=== PATIENT | male | born 1985 | race Caucasian/White ===

== ENCOUNTER 2018-12-14 10:48 | Inpatient (IN) | payer OTHER ==
[2018-12-14] MEDS ORDERED: Sodium Chloride 0.9% 1,000 ML IV SCH ×2 (11:45→15:00)
[2018-12-14] MEDS ORDERED: Ondansetron 4 MG/2 ML SDV IVPUSH ONE (11:51)
[2018-12-14] MEDS ORDERED: HYDROmorphone 0.5 MG/0.5 ML Syringe IVPUSH ONE ×2 (11:51→16:29)
--- NOTE | 2018-12-14 11:57 | EDM.PDOC ---
ED HPI GENERAL MEDICAL PROBLEM - General Chief Complaint: Abdominal Pain Stated Complaint: ABD PAIN Time Seen by Provider: 12/14/18 11:52 Source of Information: Reports: Patient History Limitations: Reports: No Limitations - History of Present Illness INITIAL COMMENTS - FREE TEXT/NARRATIVE: pt arrived having severe lower abdomanal pain. He did have 6 stools during the nite and early am. He has not vomited. He states his pain started up high and themoved to his lower abdoman. He has not voided. At the clinic he did have a bladder scan which showed a empty bladder. Onset: Gradual, Other (pt became ill tuesday. He had abdomanal cramps at that point. ) Duration: Hour(s): Location: Reports: Abdomen - Related Data Allergies Allergy/AdvReac Type Severity Reaction Status Date / Time No Known Allergies Allergy Verified 12/14/18 11:07 Home Meds: Home Meds Ibuprofen 800 mg PO Q5H PRN 12/14/18 [History] Past Medical History - Infectious Disease History Infectious Disease History: Reports: Chicken Pox Social & Family History - Tobacco Use Smoking Status *Q: Never Smoker - Caffeine Use Caffeine Use: Reports: Coffee, Energy Drinks - Recreational Drug Use Recreational Drug Use: No ED ROS GENERAL - Review of Systems Review Of Systems: See Below Constitutional: Reports: Fever, Chills HEENT: Reports: No Symptoms Respiratory: Reports: No Symptoms Cardiovascular: Reports: No Symptoms Endocrine: Reports: No Symptoms GI/Abdominal: Reports: Abdominal Pain, Other (hurts alot when he walks. ) : Reports: Other (pt is having difficulty voiding. ) Musculoskeletal: Reports: No Symptoms Skin: Reports: No Symptoms ED EXAM, RENAL/ - Physical Exam Exam: See Below Text/Narrative:: pt arrived with a low grade temp and severe lower abdomanal pain. He has not vomited but he has been having alot of loose stools. He has pain when he walks. Exam Limited By: No Limitations General Appearance: Alert, Anxious Ears: Normal TMs Nose: Normal Inspection Throat/Mouth: Normal Inspection Head: Atraumatic Neck: Normal Inspection Respiratory/Chest: No Respiratory Distress Cardiovascular: Regular Rate, Rhythm, Tachycardia GI/Abdominal: Guarding, Rigid, Rebound, Other (pt has marked tenderness in the lower abdoman, both sides. ) (Male) Exam: Deferred Rectal (Males) Exam: Deferred Back Exam: Normal Inspection Extremities: Normal Inspection Neurological: Alert, Oriented, Normal Cognition Psychiatric: Anxious Course - Vital Signs Last Recorded V/S: Last Vital Signs Temp 35.6 C 12/14/18 12:52 Pulse 98 12/14/18 12:52 Resp 16 12/14/18 12:52 BP 141/74 H 12/14/18 12:52 Pulse Ox 98 12/14/18 12:52 - Orders/Labs/Meds Orders: Active Orders 24 hr Category Date Time Status Sodium Chloride 0.9% [Normal Saline] 1,000 ml Med 12/14/18 11:45 Active IV ASDIRECTED cefOXitin [Mefoxin] 2 gm Med 12/14/18 13:13 Ordered Sodium Chloride 0.9% [Normal Saline] 50 ml IV ONETIME Medication Orders Sodium Chloride (Normal Saline) 1,000 mls @ 999 mls/hr IV ASDIRECTED FABIO Last Admin: 12/14/18 12:17 Dose: 999 mls/hr Labs: Laboratory Tests 12/14/18 12/14/18 12/14/18 Range/Units 09:42 11:50 11:50 WBC 28.9 H (4.5-11.0) K/uL RBC 4.90 (4.30-5.90) M/uL Hgb 14.9 (12.0-15.0) g/dL Hct 45.8 (40.0-54.0) % MCV 94 (80-98) fL MCH 30 (27-31) pg MCHC 33 (32-36) % Plt Count 224 (150-400) K/uL Neut % (Auto) 92 H (36-66) % Lymph % (Auto) 3 L (24-44) % Haakon % (Auto) 5 (2-6) % Eos % (Auto) 0 L (2-4) % Baso % (Auto) 0 (0-1) % Sodium 135 L (140-148) mmol/L Potassium 4.4 (3.6-5.2) mmol/L Chloride 97 L (100-108) mmol/L Carbon Dioxide 25 (21-32) mmol/L Anion Gap 17.4 H (5.0-14.0) mmol/L BUN 18 (7-18) mg/dL Creatinine 2.0 H (0.8-1.3) mg/dL Est Cr Clr Drug Dosing 64.97 mL/min Estimated GFR (MDRD) 38 L (>60) BUN/Creatinine Ratio Not Reportable Glucose 140 H (74-106) mg/dL Lactic Acid 3.1 H (0.4-2.0) mmol/L Calcium 9.5 (8.5-10.1) mg/dL Total Bilirubin 1.2 H (0.2-1.0) mg/dL AST 20 (15-37) U/L ALT 42 (12-78) U/L Alkaline Phosphatase 80 (46-116) U/L C-Reactive Protein 26.99 H (0.0-0.3) mg/dL Total Protein 8.4 H (6.4-8.2) g/dL Albumin 3.7 (3.4-5.0) g/dL Globulin 4.7 H (2.3-3.5) g/dL Albumin/Globulin Ratio 0.8 L (1.2-2.2) Lipase (73-393) U/L Urine Color Urine Appearance Urine pH (4.5-8.0) Ur Specific [place] (1.008-1.030) Urine Protein (NEGATIVE) mg/dL Urine Glucose (UA) (NEGATIVE) mg/dL Urine Ketones (NEGATIVE) mg/dL Urine Occult Blood (NEGATIVE) Urine Nitrite (NEGAITVE) Urine Bilirubin (NEGATIVE) Urine Urobilinogen (NORMAL) mg/dL Ur Leukocyte Esterase (NEGATIVE) Urine RBC (0-5) Urine WBC (0-5) Ur Epithelial Cells Amorphous Sediment Urine Bacteria Urine Mucus 12/14/18 12/14/18 Range/Units 12:00 12:11 WBC (4.5-11.0) K/uL RBC (4.30-5.90) M/uL Hgb (12.0-15.0) g/dL Hct (40.0-54.0) % MCV (80-98) fL MCH (27-31) pg MCHC (32-36) % Plt Count (150-400) K/uL Neut % (Auto) (36-66) % Lymph % (Auto) (24-44) % Haakon % (Auto) (2-6) % Eos % (Auto) (2-4) % Baso % (Auto) (0-1) % Sodium (140-148) mmol/L Potassium (3.6-5.2) mmol/L Chloride (100-108) mmol/L Carbon Dioxide (21-32) mmol/L Anion Gap (5.0-14.0) mmol/L BUN (7-18) mg/dL Creatinine (0.8-1.3) mg/dL Est Cr Clr Drug Dosing mL/min Estimated GFR (MDRD) (>60) BUN/Creatinine Ratio Glucose (74-106) mg/dL Lactic Acid (0.4-2.0) mmol/L Calcium (8.5-10.1) mg/dL Total Bilirubin (0.2-1.0) mg/dL AST (15-37) U/L ALT (12-78) U/L Alkaline Phosphatase (46-116) U/L C-Reactive Protein (0.0-0.3) mg/dL Total Protein (6.4-8.2) g/dL Albumin (3.4-5.0) g/dL Globulin (2.3-3.5) g/dL Albumin/Globulin Ratio (1.2-2.2) Lipase 58 L (73-393) U/L Urine Color Yellow Urine Appearance Clear Urine pH 5.0 (4.5-8.0) Ur Specific [place] 1.015 (1.008-1.030) Urine Protein Trace (NEGATIVE) mg/dL Urine Glucose (UA) Normal (NEGATIVE) mg/dL Urine Ketones Negative (NEGATIVE) mg/dL Urine Occult Blood Negative (NEGATIVE) Urine Nitrite Negative (NEGAITVE) Urine Bilirubin Negative (NEGATIVE) Urine Urobilinogen Normal (NORMAL) mg/dL Ur Leukocyte Esterase Negative (NEGATIVE) Urine RBC 0-5 (0-5) Urine WBC 0-5 (0-5) Ur Epithelial Cells Rare Amorphous Sediment Many Urine Bacteria Not seen Urine Mucus Not seen Meds: Medications Generic Name Dose Route Start Last Admin Trade Name Freq PRN Reason Stop Dose Admin Sodium Chloride 1,000 mls @ 999 mls/hr 12/14/18 11:45 12/14/18 12:17 Normal Saline IV 999 mls/hr ASDIRECTED FABIO Administration Discontinued Medications Generic Name Dose Route Start Last Admin Trade Name Freq PRN Reason Stop Dose Admin Hydromorphone HCl 0.5 mg 12/14/18 11:51 12/14/18 12:21 Dilaudid IVPUSH 12/14/18 11:52 0.5 mg ONETIME ONE Administration Ondansetron HCl 4 mg 12/14/18 11:51 12/14/18 12:21 Zofran IVPUSH 12/14/18 11:52 4 mg ONETIME ONE Administration - Re-Assessments/Exams Free Text/Narrative Re-Assessment/Exam: 12/14/18 13:18 pt has a 28,000 wbc and a markedly elevated crp. He has been given 2 liters of fluid and cefoxitin 2 gm. Departure - Departure Time of Disposition: 13:18 Disposition: Admitted As Inpatient 64 Condition: Fair Clinical Impression: Acute appendicitis - Discharge Information Referrals: PCP,None [Primary Care Provider] - Forms: ED Department Discharge Care Plan Goals: admit to Dr Coker - My Orders Last 24 Hours: My Active Orders 12/14/18 11:45 Sodium Chloride 0.9% [Normal Saline] 1,000 ml IV ASDIRECTED 12/14/18 13:13 cefOXitin [Mefoxin] 2 gm Sodium Chloride 0.9% [Normal Saline] 50 ml IV ONETIME - Assessment/Plan Last 24 Hours: My Active Orders 12/14/18 11:45 Sodium Chloride 0.9% [Normal Saline] 1,000 ml IV ASDIRECTED 12/14/18 13:13 cefOXitin [Mefoxin] 2 gm Sodium Chloride 0.9% [Normal Saline] 50 ml IV ONETIME
--- NOTE | 2018-12-14 13:01 | CRLCT ---
INDICATION: Abdominal pain TECHNIQUE: CT abdomen and pelvis without contrast. COMPARISON: None. FINDINGS: Lower chest: Unremarkable. Liver: Normal in size and attenuation. No masses. Gallbladder and bile ducts: No stones or inflammation. No biliary dilatation. Pancreas: Unremarkable. No mass or inflammation. Spleen: Normal in size. No masses. Adrenal glands: Normal in size. No nodules. Kidneys: Normal in size. No masses, stones, or hydronephrosis. GI tract: Unremarkable. Normal in caliber. No sign of mass or inflammation. Appendix is markedly inflamed and dilated measuring up to 14 mm. There are multiple fecaliths within the appendix. No sign of cameron perforation or abscess. Vasculature: Unremarkable. Lymph nodes: No lymphadenopathy. Abdominal wall/Omentum/Peritoneum: Unremarkable. No sign of mass or infiltration. No free air or significant free fluid. Pelvis: Unremarkable. No pelvic masses. Bones: Unremarkable for age. IMPRESSION: Acute appendicitis without convincing evidence of rupture. The remainder of the exam is unremarkable. Dictated by Mihai Blunt MD @ 12/14/2018 12:59:22 PM Please note that all CT scans at this facility use dose modulation, iterative reconstruction, and/or weight-based dosing when appropriate to reduce radiation dose to as low as reasonably achievable. Dictated by: Mihai Blunt MD @ 12/14/2018 12:59:31 (Electronically Signed)
[2018-12-14] MEDS ORDERED: cefOXitin 2 GM in Sodium Chloride 0.9% 50 ML IV ONE ×2 (13:13→13:45)
[2018-12-14] MEDS ORDERED: Sodium Chloride 0.9% 1,000 ML IV ONE (13:48)
[2018-12-14] MEDS ORDERED: Neostigmine Methylsulfate 1 MG/ML 5 ML Syringe ONE (16:14)
[2018-12-14] MEDS ORDERED: Midazolam 1 MG/ML 2 ML SDV ONE (16:14)
[2018-12-14] MEDS ORDERED: fentaNYL 250 MCG/5 ML SDV ONE ×2 (16:14→20:11)
[2018-12-14] MEDS ORDERED: Dexamethasone 4 MG/ML SDV ONE (16:14)
[2018-12-14] MEDS ORDERED: Glycopyrrolate 0.2 MG/ML 5 ML MDV ONE (16:14)
[2018-12-14] MEDS ORDERED: Ondansetron 4 MG/2 ML SDV ONE (16:14)
[2018-12-14] MEDS ORDERED: Succinylcholine 200 MG/10 ML MDV ONE (16:14)
[2018-12-14] MEDS ORDERED: Propofol 200 MG/20 ML SDV ONE (16:14)
[2018-12-14] MEDS ORDERED: Rocuronium 50 MG/5 ML Vial ONE ×2 (16:14→20:11)
[2018-12-14] MEDS ORDERED: HYDROmorphone 0.5 MG/0.5 ML Syringe ONE (16:32)
[2018-12-14] MEDS ORDERED: Ondansetron 4 MG/2 ML SDV IVPUSH PRN (21:08)
[2018-12-14] MEDS ORDERED: HYDROmorphone/Normal Saline 15 MG/30 ML PCA IV SCH (21:15)
[2018-12-14] MEDS ORDERED: Lidocaine 1% with EPINEPHrine 1:100,000 50 ML MDV ONE (21:51)
[2018-12-14] MEDS ORDERED: Bupivacaine 0.5% 50 ML MDV ONE (21:51)
[2018-12-14] MEDS: D5 1/2 NS w/ 20 mEq/L KCl 1,000 ML IV SCH (21:55)
[2018-12-14] MEDS: Piperacillin/Tazobactam 3.375 GM in Sodium Chloride 0.9% 50 ML IV SCH (22:11)
[2018-12-15] MEDS: Piperacillin/Tazobactam 3.375 GM in Sodium Chloride 0.9% 50 ML IV SCH (03:46)
[2018-12-15] MEDS: D5 1/2 NS w/ 20 mEq/L KCl 1,000 ML IV SCH ×3 (05:23→19:52)
[2018-12-15] MEDS ORDERED: Naloxone 0.4 MG/ML SDV IV PRN (07:15)
--- NOTE | 2018-12-15 08:09 | OR ---
DATE OF PROCEDURE: 12/14/2018 PREOPERATIVE DIAGNOSIS: Acute appendicitis. POSTOPERATIVE DIAGNOSIS: Acute retrocecal perforated appendicitis. PROCEDURE PERFORMED: Laparoscopic converted to open appendectomy. SURGEON: Atul Bardales MD ANESTHESIA: General endotracheal. INDICATION: This 33-year-old white male noted onset of diffuse abdominal pain 2 -1/2 days ago. The pain subsequently moved to his right lower quadrant. Pain was followed by nausea, but no vomiting. He has had 2 days of chills and fever. He thought it was all just the flu. It got worse today, causing him to seek medical care. He was seen in the clinic and referred to the emergency room. He was found to be quite tender in the lower abdomen with peritoneal signs. He was afebrile. He had a CT scan, which showed a dilated distended appendix at 14 mm with fecaliths in it. It did not appear to be perforated. He had a 28,900 white count. I counseled him for a laparoscopic with possible open appendectomy , including risks and alternatives, and he gave his informed consent to proceed. DESCRIPTION OF PROCEDURE: After adequate general endotracheal anesthesia was obtained, the patient had a Brennan catheter placed. The leg compression stockings were in place and used during the entire procedure. His abdomen was prepped and draped in the usual sterile fashion. Time-out was held. An infraumbilical semicircular incision was made. Under direct vision, a 12-mm port was introduced in the abdomen through this incision. The camera was introduced into the abdomen, and the abdomen was insufflated to a pressure of 15 mmHg with carbon dioxide. We encountered purulent material. A lot of erythema and inflammation consistent with peritonitis was seen. We placed 12 mm ports in the right upper and left lower quadrants. We aspirated the fluid free. It was sent for Gram-stain and culture, Gram stain returned gram- negative rods and wbc's. We attempted to find and mobilize up the appendix. We mobilized the cecum by taking down the peritoneal reflection. We could see the tip of the appendix. This was obviously a retrocecal appendix. It was clear after a protracted attempt at mobilizing the appendix that we were not going to be able to safely do this, so it was converted to open. A Casa-Carlos Eduardo incision was made. This was carried deep using Bovie cautery to the external oblique. This was opened parallel to course of its fibers. A muscle-splitting maneuver was used to reach the peritoneum, which was elevated and incised. The peritoneal incision was extended transversely the length of the skin incision using Bovie cautery while protecting underlying structures. This was not a large enough incision, so we extended it with a Bath extension using Bovie cautery. We were then able manually to mobilize up the cecum and then the appendix. The mesoappendix was taken down with a cruz load using the endoscopic KAROLINA. The base of the appendix appeared to be necrotic, consistent with perforation, obviously suspected because of the purulent appearing material present. The base of appendix was divided with the endoscopic KAROLINA. This appeared to be a good viable closure. We did oversew this with Lembert stitches of 3-0 Vicryl in a running fashion. The abdomen had previously been irrigated and suctioned dry. Also, the right upper and left lower quadrant fascial defects had previously been closed with 0 Vicryl suture using the fascial closure device. At this point, we irrigated the cecum outside the abdomen and returned the cecum to the abdomen. We aspirated the fluid that was left in the abdomen, and then we closed the abdomen. The peritoneum was closed with a running stitch of 3-0 Vicryl. The fascia was closed with a running 0 Vicryl suture. This was done in layers. We irrigated the incision between layers. The incision was then packed open with 1 inch iodoform gauze. The infraumbilical incision was closed with an interrupted stitch of 0 Vicryl. The laparoscopic incisions had a 1 inch iodoform gauze placed in them. A sterile dressing was applied. The anesthesia was reversed. He was extubated and brought to recovery room in fair condition. He did tolerate the procedure well. Atul Bardales MD /[id number] MELLY
[2018-12-15] MEDS: HYDROmorphone/Normal Saline 15 MG/30 ML PCA IV PRN ×2 (09:04→20:58)
[2018-12-15] MEDS: Piperacillin/Tazobactam/Dext 3.375 GM in Premix Bag 1 BAG IV SCH ×3 (10:23→21:00)
--- NOTE | 2018-12-15 14:39 | PCM.SURGPN ---
- General Info Date of Service: 12/15/18 Date of Surgery/Procedure: 12/14/18 POD#: 1 Post-Op Diagnosis: Perforated acute retrocecal appendicitis Functional Status: Reports: Pain Controlled, Tolerating Diet (Clear liquids), Ambulating, Urinating (Brennan), Incentive Spirometry - Review of Systems General: Reports: No Symptoms, Other (He feels better than he did preoperatively. ) HEENT: Reports: No Symptoms Pulmonary: Reports: No Symptoms Cardiovascular: Reports: No Symptoms Gastrointestinal: Reports: Abdominal Pain (Improved compared to preoperatively. ). Denies: Flatus, Nausea, Vomiting Genitourinary: Reports: No Symptoms Musculoskeletal: Reports: No Symptoms Skin: Reports: No Symptoms Neurological: Reports: No Symptoms Psychiatric: Reports: No Symptoms - Patient Data Vitals - Most Recent: Last Vital Signs Temp 99.4 F 12/15/18 12:47 Pulse 92 12/15/18 12:47 Resp 16 12/15/18 12:47 BP 128/63 12/15/18 12:47 Pulse Ox 89 L 12/15/18 14:04 Weight - Most Recent: 249 lb 15.997 oz I&O - Last 24 Hours: Intake & Output 12/14/18 12/15/18 12/15/18 22:59 06:59 14:59 Intake Total 50 1258 650 Output Total 625 775 425 Balance -575 483 225 Lab Results Last 24 Hrs: Laboratory Results - last 24 hr 12/15/18 12/15/18 Range/Units 04:36 04:36 WBC 19.8 H (4.5-11.0) K/uL RBC 4.11 L (4.30-5.90) M/uL Hgb 12.4 D (12.0-15.0) g/dL Hct 39.2 L (40.0-54.0) % MCV 95 (80-98) fL MCH 30 (27-31) pg MCHC 32 (32-36) % Plt Count 235 (150-400) K/uL Sodium 136 L (140-148) mmol/L Potassium 4.7 (3.6-5.2) mmol/L Chloride 103 (100-108) mmol/L Carbon Dioxide 24 (21-32) mmol/L Anion Gap 13.7 (5.0-14.0) mmol/L BUN 11 (7-18) mg/dL Creatinine 1.1 (0.8-1.3) mg/dL Est Cr Clr Drug Dosing 118.13 mL/min Estimated GFR (MDRD) > 60 (>60) Glucose 149 H (74-106) mg/dL Calcium 8.6 (8.5-10.1) mg/dL Boubacar Results Last 24 Hrs: Microbiology 12/14/18 20:01 Gram Stain - Final Abdominal Fluid - Aspirate Med Orders - Current: Current Medications Enoxaparin Sodium (Lovenox) 40 mg SUBCUT Q24H [facility] Hydromorphone HCl (Dilaudid It Risk And Assurance Manager 15 Mg In Ns 30 Ml) 0 mg IV ASDIRECTED PRN; Protocol PRN Reason: Pain Last Admin: 12/15/18 09:04 Dose: 15 mg Potassium Chloride/Dextrose/Sod Cl (D5 1/2 Ns W/ 20 Meq/L Kcl) 1,000 mls @ 150 mls/hr IV ASDIRECTED FABIO Last Admin: 12/15/18 12:44 Dose: 150 mls/hr Piperacillin/Tazobactam/ (Dextrose 3.375 gm/ Premix) 50 mls @ 100 mls/hr IV Q6H [facility] Last Admin: 12/15/18 10:23 Dose: 100 mls/hr Naloxone HCl (Narcan) 0.1 mg IV ASDIRECTED PRN PRN Reason: decreased respiratory rate Ondansetron HCl (Zofran) 4 mg IVPUSH Q6H PRN PRN Reason: Nausea/Vomiting Discontinued Medications Bupivacaine HCl (Marcaine 0.5%) Confirm Administered Dose 50 ml .ROUTE .STK-MED ONE Stop: 12/14/18 21:52 Last Admin: 12/14/18 20:55 Dose: 10 ml Dexamethasone (Dexamethasone) Confirm Administered Dose 4 mg .ROUTE .STK-MED ONE Stop: 12/14/18 16:15 Fentanyl (Sublimaze) Confirm Administered Dose 250 mcg .ROUTE .STK-MED ONE Stop: 12/14/18 16:15 Fentanyl (Sublimaze) Confirm Administered Dose 250 mcg .ROUTE .STK-MED ONE Stop: 12/14/18 20:12 Glycopyrrolate (Robinul) Confirm Administered Dose 1 mg .ROUTE .STK-MED ONE Stop: 12/14/18 16:15 Hydromorphone HCl (Dilaudid) 0.5 mg IVPUSH ONETIME ONE Stop: 12/14/18 11:52 Last Admin: 12/14/18 12:21 Dose: 0.5 mg Hydromorphone HCl (Dilaudid) 0.5 mg IVPUSH ONETIME ONE Stop: 12/14/18 16:30 Last Admin: 12/14/18 16:33 Dose: 0.5 mg Hydromorphone HCl (Dilaudid) Confirm Administered Dose 0.5 mg .ROUTE .STK-MED ONE Stop: 12/14/18 16:33 Last Admin: 12/14/18 18:53 Dose: Not Given Hydromorphone HCl (Dilaudid It Risk And Assurance Manager 15 Mg In Ns 30 Ml) 15 mg IV ASDIRECTED [facility]; Protocol Last Admin: 12/15/18 01:08 Dose: 15 mg Sodium Chloride (Normal Saline) 1,000 mls @ 999 mls/hr IV ASDIRECTED [facility] Last Admin: 12/14/18 12:17 Dose: 999 mls/hr Cefoxitin Sodium 2 gm/ Sodium (Chloride) 50 mls @ 100 mls/hr IV ONETIME ONE Stop: 12/14/18 13:42 Cefoxitin Sodium 2 gm/ Sodium (Chloride) 50 mls @ 100 mls/hr IV ONETIME ONE Stop: 12/14/18 14:14 Last Admin: 12/14/18 21:56 Dose: Not Given Sodium Chloride (Normal Saline) 1,000 mls @ 999 mls/hr IV .BOLUS ONE Stop: 12/14/18 14:48 Last Admin: 12/14/18 13:49 Dose: 999 mls/hr Sodium Chloride (Normal Saline) 1,000 mls @ 250 mls/hr IV ASDIRECTED [facility] Last Admin: 12/14/18 14:53 Dose: 250 mls/hr Piperacillin Sod/Tazobactam (Sod 3.375 gm/ Sodium Chloride) 50 mls @ 100 mls/ hr IV Q6H [facility] Last Admin: 12/15/18 03:46 Dose: 100 mls/hr Lidocaine/Epinephrine (Xylocaine 1% With Epinephrine 1:100,000) Confirm Administered Dose 50 ml .ROUTE .STK-MED ONE Stop: 12/14/18 21:52 Last Admin: 12/14/18 20:55 Dose: 10 ml Midazolam HCl (Versed 1 Mg/Ml) Confirm Administered Dose 2 mg .ROUTE .STK-MED ONE Stop: 12/14/18 16:15 Neostigmine Methylsulfate (Neostigmine) Confirm Administered Dose 5 mg .ROUTE .STK-MED ONE Stop: 12/14/18 16:15 Ondansetron HCl (Zofran) 4 mg IVPUSH ONETIME ONE Stop: 12/14/18 11:52 Last Admin: 12/14/18 12:21 Dose: 4 mg Ondansetron HCl (Zofran) Confirm Administered Dose 4 mg .ROUTE .STK-MED ONE Stop: 12/14/18 16:15 Propofol (Diprivan 20 Ml) Confirm Administered Dose 200 mg .ROUTE .STK-MED ONE Stop: 12/14/18 16:15 Rocuronium [place] (Zemuron) Confirm Administered Dose 50 mg .ROUTE .STK-MED ONE Stop: 12/14/18 16:15 Rocuronium [place] (Zemuron) Confirm Administered Dose 50 mg .ROUTE .STK-MED ONE Stop: 12/14/18 20:12 Succinylcholine Chloride (Quelicin) Confirm Administered Dose 200 mg .ROUTE .STK -MED ONE Stop: 12/14/18 16:15 - Exam Wound/Incisions: Dressing Dry and Intact, No Drainage Quality Assessment: Urine Catheter, DVT Prophylaxis General: Alert, Oriented, Cooperative, No Acute Distress Lungs: Clear to Auscultation, Normal Respiratory Effort Cardiovascular: Regular Rate, Regular Rhythm GI/Abdominal Exam: No Distention, Abnormal Bowel Sounds (Hypoactive), Other ( Dressing intact for planned DPC in the morning. ). No: Normal Bowel Sounds Extremities: Normal Inspection Skin: Warm, Dry Psy/Mental Status: Alert, Normal Affect, Normal Mood - Problem List Review Problem List Initiated/Reviewed/Updated: Yes - My Orders Last 24 Hours: Active Orders 24 hr Category Date Time Status Patient Status [ADT] Routine ADT 12/14/18 21:08 Active Ambulate [RC] ASDIRECTED Care 12/14/18 21:08 Active Antiembolic Devices [RC] .Routine Care 12/14/18 21:11 Active Communication Order [RC] ASDIRECTED Care 12/14/18 21:23 Active DC Brennan Catheter [Urinary Catheter Removal] [RC] Per Care 12/15/18 14:20 Ordered Unit Routine Dorsiflex/Plantar flex x 10 [RC] QSHIFT Care 12/14/18 21:08 Active Head of Bed Elevation [RC] CONTINUOUS Care 12/14/18 21:08 Active Intake and Output [RC] Q4HR Care 12/14/18 21:09 Active Notify Provider Intake and Out [RC] PRN Care 12/14/18 21:09 Active Notify Provider Vital Signs [RC] PRN Care 12/14/18 21:09 Active Oxygen Therapy [RC] PRN Care 12/14/18 21:08 Active Pneumonia Education [RC] UPON Care 12/14/18 21:08 Active Pulse Oximetry [RC] CONTINUOUS Care 12/14/18 21:10 Active RT Incentive Spirometry [RC] Q1HWA Care 12/14/18 21:08 Active Turn, Cough, Deep Breathe [RC] Q1HWA Care 12/14/18 21:08 Active Up With Assistance [RC] ASDIRECTED Care 12/14/18 21:08 Active Up ad Radha [RC] ASDIRECTED Care 12/14/18 21:08 Active Up to Chair [RC] TIDMEALS Care 12/14/18 21:08 Active VTE/DVT Education [RC] Click to Edit Care 12/14/18 21:11 Active Vital Signs [RC] Q4H Care 12/14/18 21:08 Active Respiratory Care Assess and Treatment [CONS] Routine Cons 12/14/18 21:08 Active Clear Liquid Diet [DIET] Diet 12/15/18 Lunch Active BASIC METABOLIC PANEL,BMP [CHEM] DAILY Lab 12/16/18 05:11 Ordered BASIC METABOLIC PANEL,BMP [CHEM] DAILY Lab 12/17/18 05:11 Ordered BASIC METABOLIC PANEL,BMP [CHEM] DAILY Lab 12/18/18 05:11 Ordered BASIC METABOLIC PANEL,BMP [CHEM] DAILY Lab 12/19/18 05:11 Ordered BASIC METABOLIC PANEL,BMP [CHEM] DAILY Lab 12/20/18 05:11 Ordered CBC W/O DIFF,HEMOGRAM [HEME] DAILY Lab 12/16/18 05:11 Ordered CBC W/O DIFF,HEMOGRAM [HEME] DAILY Lab 12/17/18 05:11 Ordered CBC W/O DIFF,HEMOGRAM [HEME] DAILY Lab 12/18/18 05:11 Ordered CBC W/O DIFF,HEMOGRAM [HEME] DAILY Lab 12/19/18 05:11 Ordered CBC W/O DIFF,HEMOGRAM [HEME] DAILY Lab 12/20/18 05:11 Ordered CULTURE ANAEROBIC [RM] Stat Lab 12/14/18 20:01 Results CULTURE WOUND + SMEAR [RM] Stat Lab 12/14/18 20:01 Results D5 1/2 NS w/ 20 mEq/L KCl 1,000 ml Med 12/14/18 21:30 Active IV ASDIRECTED Enoxaparin [Lovenox] Med 12/15/18 14:30 Ordered 40 mg SUBCUT DAILY HYDROmorphone/Normal Saline [Dilaudid SCHOOL ADMINISTRATOR 15 MG in NS Med 12/15/18 07:14 Active 30 ML] 0 mg IV ASDIRECTED PRN Naloxone [Narcan] Med 12/15/18 07:15 Active 0.1 mg IV ASDIRECTED PRN Ondansetron [Zofran] Med 12/14/18 21:08 Active 4 mg IVPUSH Q6H PRN Piperacillin/Tazobactam/Dext [Zosyn in Dextrose Iso- Med 12/15/18 10:00 Active Osmotic 3.375 GM] 3.375 gm Premix Bag 1 bag IV Q6H Abdominal Binder [OM.PC] Per Unit Routine Oth 12/14/18 21:09 Ordered DVT/VTE Prophylaxis Reflex [OM.PC] Per Unit Routine Oth 12/14/18 21:11 Ordered Resuscitation Status Routine Resus Stat 12/14/18 21:08 Ordered Medication Orders Enoxaparin Sodium (Lovenox) 40 mg SUBCUT Q24H [facility] Hydromorphone HCl (Dilaudid It Risk And Assurance Manager 15 Mg In Ns 30 Ml) 0 mg IV ASDIRECTED PRN; Protocol PRN Reason: Pain Last Admin: 12/15/18 09:04 Dose: 15 mg Potassium Chloride/Dextrose/Sod Cl (D5 1/2 Ns W/ 20 Meq/L Kcl) 1,000 mls @ 150 mls/hr IV ASDIRECTED FABIO Last Admin: 12/15/18 12:44 Dose: 150 mls/hr Infusion: 12/15/18 12:04 Dose: 150 mls/hr Admin: 12/15/18 05:23 Dose: 150 mls/hr Infusion: 12/15/18 04:36 Dose: 150 mls/hr Admin: 12/14/18 21:55 Dose: 150 mls/hr Piperacillin/Tazobactam/ (Dextrose 3.375 gm/ Premix) 50 mls @ 100 mls/hr IV Q6H [facility] Last Admin: 12/15/18 10:23 Dose: 100 mls/hr Naloxone HCl (Narcan) 0.1 mg IV ASDIRECTED PRN PRN Reason: decreased respiratory rate Ondansetron HCl (Zofran) 4 mg IVPUSH Q6H PRN PRN Reason: Nausea/Vomiting - Assessment Assessment (Free Text/Narrative):: Peritoneal fluid gram stain with Gm - rods and WBC's. WBC down to about 19K. Afebrile now, temp. max last night 100.8. He is improving. - Plan Plan (Free Text/Narrative):: Clear liquid diet has been started. Start Lovenox. D/C Mika. DPC in AM.
[2018-12-15] MEDS: Enoxaparin 40 MG/0.4 ML Syringe SUBCUT SCH (15:21)
[2018-12-16] MEDS: Piperacillin/Tazobactam/Dext 3.375 GM in Premix Bag 1 BAG IV SCH ×4 (03:44→21:28)
[2018-12-16] MEDS ORDERED: Bupivacaine 0.5% 50 ML MDV ONE (06:42)
[2018-12-16] MEDS ORDERED: Lidocaine 1% with EPINEPHrine 1:100,000 50 ML MDV ONE (06:42)
[2018-12-16] MEDS ORDERED: Propofol 200 MG/20 ML SDV ONE ×2 (07:00→07:30)
[2018-12-16] MEDS ORDERED: fentaNYL 100 MCG/2 ML SDV ONE (07:01)
[2018-12-16] MEDS ORDERED: Sodium Chloride 0.9% 500 ML ONE (07:16)
[2018-12-16] MEDS: HYDROmorphone/Normal Saline 15 MG/30 ML PCA IV PRN (08:47)
[2018-12-16] MEDS: D5 1/2 NS w/ 20 mEq/L KCl 1,000 ML IV SCH (09:55)
[2018-12-16] MEDS ORDERED: D5 1/2 NS w/ 20 mEq/L KCl 1,000 ML IV SCH (14:00)
[2018-12-16] MEDS ORDERED: Acetaminophen/HYDROcodone 325-5 MG Tab PO PRN (16:29)
[2018-12-16] MEDS: Enoxaparin 40 MG/0.4 ML Syringe SUBCUT SCH (17:10)
[2018-12-16] MEDS: Acetaminophen/HYDROcodone 325-5 MG Tab PO PRN (21:27)
[2018-12-17] MEDS: Acetaminophen/HYDROcodone 325-5 MG Tab PO PRN ×6 (03:01→23:18)
[2018-12-17] MEDS: Piperacillin/Tazobactam/Dext 3.375 GM in Premix Bag 1 BAG IV SCH ×4 (03:02→22:07)
[2018-12-17] MEDS ORDERED: Magnesium Hydroxide 400 MG/5 ML Susp 30 ML Cup PO ONE (06:00)
--- NOTE | 2018-12-17 09:01 | PCM.SURGPN ---
- General Info Date of Service: 12/17/18 Date of Surgery/Procedure: 12/14/18 POD#: 3 Post-Op Diagnosis: Acute perforated appendicitis. Admission Diagnosis/Problem: Appendicitis Functional Status: Reports: Pain Controlled, Tolerating Diet, Ambulating, Urinating, Incentive Spirometry, Other (Had BM. ) - Review of Systems General: Reports: No Symptoms. Denies: Fever HEENT: Reports: No Symptoms Pulmonary: Reports: No Symptoms Cardiovascular: Reports: No Symptoms Gastrointestinal: Reports: No Symptoms, Other (Had large BM. ). Denies: Nausea , Vomiting Genitourinary: Reports: No Symptoms Musculoskeletal: Reports: No Symptoms Skin: Reports: No Symptoms Neurological: Reports: No Symptoms Psychiatric: Reports: No Symptoms - Patient Data Vitals - Most Recent: Last Vital Signs Temp 97.3 F 12/17/18 07:13 Pulse 84 12/17/18 07:13 Resp 18 12/17/18 07:13 BP 140/70 12/17/18 07:13 Pulse Ox 96 12/17/18 07:17 Weight - Most Recent: 249 lb 15.997 oz I&O - Last 24 Hours: Intake & Output 12/16/18 12/17/18 12/17/18 22:59 06:59 14:59 Intake Total 50 Output Total 2950 300 300 Balance -2900 -300 -300 Lab Results Last 24 Hrs: Laboratory Results - last 24 hr 12/17/18 12/17/18 Range/Units 05:11 05:11 WBC 12.3 H (4.5-11.0) K/uL RBC 3.75 L (4.30-5.90) M/uL Hgb 11.3 L (12.0-15.0) g/dL Hct 33.8 L (40.0-54.0) % MCV 90 (80-98) fL MCH 30 (27-31) pg MCHC 33 (32-36) % Plt Count 277 (150-400) K/uL Sodium 136 L (140-148) mmol/L Potassium 3.4 L (3.6-5.2) mmol/L Chloride 100 (100-108) mmol/L Carbon Dioxide 27 (21-32) mmol/L Anion Gap 12.4 (5.0-14.0) mmol/L BUN 7 (7-18) mg/dL Creatinine 1.1 (0.8-1.3) mg/dL Est Cr Clr Drug Dosing 118.63 mL/min Estimated GFR (MDRD) > 60 (>60) Glucose 107 H (74-106) mg/dL Calcium 9.1 (8.5-10.1) mg/dL [facility] Results Last 24 Hrs: Microbiology 12/14/18 20:01 Gram Stain - Final Abdominal Fluid - Aspirate Wound Culture - Final Escherichia Coli Anaerobic Culture - Preliminary NO GROWTH AFTER 2 DAYS Med Orders - Current: Current Medications Hydrocodone Bitart/Acetaminophen ([place] 325-5 Mg) 1 - 2 tab PO Q4H PRN PRN Reason: Pain Last Admin: 12/17/18 07:20 Dose: 2 tab Enoxaparin Sodium (Lovenox) 40 mg SUBCUT Q24H [facility] Last Admin: 12/16/18 17:10 Dose: 40 mg Piperacillin/Tazobactam/ (Dextrose 3.375 gm/ Premix) 50 mls @ 100 mls/hr IV Q6H [facility] Last Admin: 12/17/18 03:02 Dose: 100 mls/hr Potassium Chloride/Dextrose/Sod Cl (D5 1/2 Ns W/ 20 Meq/L Kcl) 1,000 mls @ 0 mls/hr IV ASDIRECTED [facility] Lactobacillus Rhamnosus (Culturelle) 1 cap PO DAILY [facility] Naloxone HCl (Narcan) 0.1 mg IV ASDIRECTED PRN PRN Reason: decreased respiratory rate Ondansetron HCl (Zofran) 4 mg IVPUSH Q6H PRN PRN Reason: Nausea/Vomiting Last Admin: 12/16/18 17:20 Dose: 4 mg Potassium Chloride (Klor-Con M20) 20 meq PO BID [facility] Stop: 12/17/18 21:01 Discontinued Medications Hydrocodone Bitart/Acetaminophen ([place] 325-5 Mg) 1 tab PO Q4H PRN PRN Reason: Pain Last Admin: 12/16/18 17:09 Dose: 1 tab Bupivacaine HCl (Marcaine 0.5%) Confirm Administered Dose 50 ml .ROUTE .STK-MED ONE Stop: 12/14/18 21:52 Last Admin: 12/14/18 20:55 Dose: 10 ml Bupivacaine HCl (Marcaine 0.5%) Confirm Administered Dose 50 ml .ROUTE .STK-MED ONE Stop: 12/16/18 06:43 Dexamethasone (Dexamethasone) Confirm Administered Dose 4 mg .ROUTE .STK-MED ONE Stop: 12/14/18 16:15 Fentanyl (Sublimaze) Confirm Administered Dose 250 mcg .ROUTE .STK-MED ONE Stop: 12/14/18 16:15 Fentanyl (Sublimaze) Confirm Administered Dose 250 mcg .ROUTE .STK-MED ONE Stop: 12/14/18 20:12 Fentanyl (Sublimaze) Confirm Administered Dose 100 mcg .ROUTE .STK-MED ONE Stop: 12/16/18 07:02 Glycopyrrolate (Robinul) Confirm Administered Dose 1 mg .ROUTE .STK-MED ONE Stop: 12/14/18 16:15 Hydromorphone HCl (Dilaudid) 0.5 mg IVPUSH ONETIME ONE Stop: 12/14/18 11:52 Last Admin: 12/14/18 12:21 Dose: 0.5 mg Hydromorphone HCl (Dilaudid) 0.5 mg IVPUSH ONETIME ONE Stop: 12/14/18 16:30 Last Admin: 12/14/18 16:33 Dose: 0.5 mg Hydromorphone HCl (Dilaudid) Confirm Administered Dose 0.5 mg .ROUTE .STK-MED ONE Stop: 12/14/18 16:33 Last Admin: 12/14/18 18:53 Dose: Not Given Hydromorphone HCl (Dilaudid [employer] 15 Mg In Ns 30 Ml) 15 mg IV ASDIRECTED [facility]; Protocol Last Admin: 12/15/18 01:08 Dose: 15 mg Hydromorphone HCl (Dilaudid [employer] 15 Mg In Ns 30 Ml) 0 mg IV ASDIRECTED PRN; Protocol PRN Reason: Pain Last Admin: 12/16/18 08:47 Dose: 15 mg Sodium Chloride (Normal Saline) 1,000 mls @ 999 mls/hr IV ASDIRECTED [facility] Last Admin: 12/14/18 12:17 Dose: 999 mls/hr Cefoxitin Sodium 2 gm/ Sodium (Chloride) 50 mls @ 100 mls/hr IV ONETIME ONE Stop: 12/14/18 13:42 Cefoxitin Sodium 2 gm/ Sodium (Chloride) 50 mls @ 100 mls/hr IV ONETIME ONE Stop: 12/14/18 14:14 Last Admin: 12/14/18 21:56 Dose: Not Given Sodium Chloride (Normal Saline) 1,000 mls @ 999 mls/hr IV .BOLUS ONE Stop: 12/14/18 14:48 Last Admin: 12/14/18 13:49 Dose: 999 mls/hr Sodium Chloride (Normal Saline) 1,000 mls @ 250 mls/hr IV ASDIRECTED [facility] Last Admin: 12/14/18 14:53 Dose: 250 mls/hr Piperacillin Sod/Tazobactam (Sod 3.375 gm/ Sodium Chloride) 50 mls @ 100 mls/ hr IV Q6H [facility] Last Admin: 12/15/18 03:46 Dose: 100 mls/hr Potassium Chloride/Dextrose/Sod Cl (D5 1/2 Ns W/ 20 Meq/L Kcl) 1,000 mls @ 150 mls/hr IV ASDIRECTED [facility] Last Infusion: 12/16/18 14:04 Dose: 25 mls/hr Sodium Chloride (Normal Saline) Confirm Administered Dose 500 mls @ as directed .ROUTE .STK-MED ONE Stop: 12/16/18 07:17 Lidocaine/Epinephrine (Xylocaine 1% With Epinephrine 1:100,000) Confirm Administered Dose 50 ml .ROUTE .STK-MED ONE Stop: 12/14/18 21:52 Last Admin: 12/14/18 20:55 Dose: 10 ml Lidocaine/Epinephrine (Xylocaine 1% With Epinephrine 1:100,000) Confirm Administered Dose 50 ml .ROUTE .STK-MED ONE Stop: 12/16/18 06:43 Magnesium Hydroxide (Milk Of Magnesia) 30 ml PO ONETIME ONE Stop: 12/17/18 06:01 Midazolam HCl (Versed 1 Mg/Ml) Confirm Administered Dose 2 mg .ROUTE .STK-MED ONE Stop: 12/14/18 16:15 Neostigmine Methylsulfate (Neostigmine) Confirm Administered Dose 5 mg .ROUTE .STK-MED ONE Stop: 12/14/18 16:15 Ondansetron HCl (Zofran) 4 mg IVPUSH ONETIME ONE Stop: 12/14/18 11:52 Last Admin: 12/14/18 12:21 Dose: 4 mg Ondansetron HCl (Zofran) Confirm Administered Dose 4 mg .ROUTE .STK-MED ONE Stop: 12/14/18 16:15 Propofol (Diprivan 20 Ml) Confirm Administered Dose 200 mg .ROUTE .STK-MED ONE Stop: 12/14/18 16:15 Propofol (Diprivan 20 Ml) Confirm Administered Dose 200 mg .ROUTE .STK-MED ONE Stop: 12/16/18 07:01 Propofol (Diprivan 20 Ml) Confirm Administered Dose 200 mg .ROUTE .STK-MED ONE Stop: 12/16/18 07:31 Rocuronium [place] (Zemuron) Confirm Administered Dose 50 mg .ROUTE .STK-MED ONE Stop: 12/14/18 16:15 Rocuronium [place] (Zemuron) Confirm Administered Dose 50 mg .ROUTE .STK-MED ONE Stop: 12/14/18 20:12 Succinylcholine Chloride (Quelicin) Confirm Administered Dose 200 mg .ROUTE .STK -MED ONE Stop: 12/14/18 16:15 - Exam Wound/Incisions: Healing Well General: Alert, Oriented, Cooperative Lungs: Clear to Auscultation, Normal Respiratory Effort Cardiovascular: Regular Rate, Regular Rhythm GI/Abdominal Exam: Normal Bowel Sounds, Soft, Non-Tender Extremities: Normal Inspection Skin: Warm, Dry, Intact Neurological: No New Focal Deficit Psy/Mental Status: Alert, Normal Affect, Normal Mood - Problem List Review Problem List Initiated/Reviewed/Updated: Yes - My Orders Last 24 Hours: Active Orders 24 hr Category Date Time Status Communication Order [RC] ASDIRECTED Care 12/16/18 16:35 Active Regular Diet [DIET] Diet 12/17/18 Lunch Active BASIC METABOLIC PANEL,BMP [CHEM] DAILY Lab 12/18/18 05:11 Ordered BASIC METABOLIC PANEL,BMP [CHEM] DAILY Lab 12/19/18 05:11 Ordered BASIC METABOLIC PANEL,BMP [CHEM] DAILY Lab 12/20/18 05:11 Ordered CBC W/O DIFF,HEMOGRAM [HEME] DAILY Lab 12/18/18 05:11 Ordered CBC W/O DIFF,HEMOGRAM [HEME] DAILY Lab 12/19/18 05:11 Ordered CBC W/O DIFF,HEMOGRAM [HEME] DAILY Lab 12/20/18 05:11 Ordered Acetaminophen/HYDROcodone [[place] 325-5 MG] Med 12/16/18 19:07 Active 1 - 2 tab PO Q4H PRN D5 1/2 NS w/ 20 mEq/L KCl 1,000 ml Med 12/16/18 14:00 Active IV ASDIRECTED Lactobacillus Rhamnosus GG [Culturelle] Med 12/17/18 09:00 Active 1 cap PO DAILY Potassium Chloride [Klor-Con M20] Med 12/17/18 09:00 Active 20 meq PO BID Convert IV to Saline Lock [OM.PC] Routine Oth 12/17/18 08:45 Ordered Medication Orders Hydrocodone Bitart/Acetaminophen ([place] 325-5 Mg) 1 - 2 tab PO Q4H PRN PRN Reason: Pain Last Admin: 12/17/18 07:20 Dose: 2 tab Admin: 12/17/18 03:01 Dose: 2 tab Admin: 12/16/18 21:27 Dose: 2 tab Enoxaparin Sodium (Lovenox) 40 mg SUBCUT Q24H [facility] Last Admin: 12/16/18 17:10 Dose: 40 mg Admin: 12/15/18 15:21 Dose: 40 mg Piperacillin/Tazobactam/ (Dextrose 3.375 gm/ Premix) 50 mls @ 100 mls/hr IV Q6H [facility] Last Admin: 12/17/18 03:02 Dose: 100 mls/hr Admin: 12/16/18 21:28 Dose: 100 mls/hr Admin: 12/16/18 17:24 Dose: 100 mls/hr Admin: 12/16/18 09:59 Dose: 100 mls/hr Admin: 12/16/18 03:44 Dose: 100 mls/hr Admin: 12/15/18 21:00 Dose: 100 mls/hr Admin: 12/15/18 15:21 Dose: 100 mls/hr Admin: 12/15/18 10:23 Dose: 100 mls/hr Potassium Chloride/Dextrose/Sod Cl (D5 1/2 Ns W/ 20 Meq/L Kcl) 1,000 mls @ 0 mls/hr IV ASDIRECTED [facility] Lactobacillus Rhamnosus (Culturelle) 1 cap PO DAILY [facility] Naloxone HCl (Narcan) 0.1 mg IV ASDIRECTED PRN PRN Reason: decreased respiratory rate Ondansetron HCl (Zofran) 4 mg IVPUSH Q6H PRN PRN Reason: Nausea/Vomiting Last Admin: 12/16/18 17:20 Dose: 4 mg Potassium Chloride (Klor-Con M20) 20 meq PO BID [facility] Stop: 12/17/18 21:01 - Assessment Assessment (Free Text/Narrative):: Cultures grew out E. coli. His WBC is down, almost normal. He appears well. - Plan Plan (Free Text/Narrative):: Regular diet, saline lock IV, oral pain meds.
[2018-12-17] MEDS: Lactobacillus Rhamnosus GG (Probiotic) Cap PO SCH (10:48)
[2018-12-17] MEDS: Potassium Chloride 20 MEQ Tab.ER PO SCH ×2 (10:49→22:07)
[2018-12-17] MEDS: Enoxaparin 40 MG/0.4 ML Syringe SUBCUT SCH (16:09)
[2018-12-18] MEDS: Acetaminophen/HYDROcodone 325-5 MG Tab PO PRN ×5 (04:10→21:13)
[2018-12-18] MEDS: Piperacillin/Tazobactam/Dext 3.375 GM in Premix Bag 1 BAG IV SCH ×4 (04:11→21:13)
--- NOTE | 2018-12-18 07:46 | OR ---
DATE OF PROCEDURE: 12/16/2018 PREOPERATIVE DIAGNOSIS: Open incisions status post laparoscopic converted to open appendectomy for perforated retrocecal acute appendicitis. POSTOPERATIVE DIAGNOSIS: Open incisions status post laparoscopic converted to open appendectomy for perforated retrocecal acute appendicitis. PROCEDURE: Delayed primary closure. SURGEON: Atul Bardales MD ANESTHESIA: IV anesthesia with monitored anesthesia care. INDICATION: This 33-year-old white male is 2 days status post a laparoscopic converted to open appendectomy for retrocecal acute perforated appendicitis. The incisions were left open. He is here for a delayed primary closure. I counseled him for the procedure, including risks and alternatives, and he gave his informed consent to proceed. DESCRIPTION OF PROCEDURE: After adequate IV anesthesia was obtained, the patient's abdomen was prepped and draped in the usual sterile fashion. The incisions were all irrigated with saline. They all looked well. They were all then closed with skin jyoti. Sterile dressings were applied. He tolerated the procedure well, was taken to recovery room in good condition. Atul Bardales MD /[id number] MTDRachel
[2018-12-18] MEDS: Lactobacillus Rhamnosus GG (Probiotic) Cap PO SCH (08:50)
[2018-12-18] MEDS: Enoxaparin 40 MG/0.4 ML Syringe SUBCUT SCH (16:53)
--- NOTE | 2018-12-18 18:07 | PCM.SURGPN ---
- General Info Date of Service: 12/18/18 Date of Surgery/Procedure: 12/14/18 POD#: 4 Post-Op Diagnosis: Perforrated appendicitis Admission Diagnosis/Problem: Appendicitis Functional Status: Reports: Pain Controlled, Tolerating Diet, Ambulating, Urinating, Incentive Spirometry, Other (Wants to go home.) - Review of Systems General: Reports: No Symptoms HEENT: Reports: No Symptoms Pulmonary: Reports: No Symptoms Cardiovascular: Reports: No Symptoms Gastrointestinal: Reports: No Symptoms Genitourinary: Reports: No Symptoms Musculoskeletal: Reports: No Symptoms Skin: Reports: No Symptoms Neurological: Reports: No Symptoms Psychiatric: Reports: No Symptoms - Patient Data Vitals - Most Recent: Last Vital Signs Temp 98.2 F 12/18/18 15:00 Pulse 92 12/18/18 15:00 Resp 18 12/18/18 15:00 BP 137/73 12/18/18 15:00 Pulse Ox 96 12/18/18 15:00 Weight - Most Recent: 249 lb 15.997 oz I&O - Last 24 Hours: Intake & Output 12/18/18 12/18/18 12/18/18 06:59 14:59 22:59 Intake Total 600 900 Balance 600 900 Lab Results Last 24 Hrs: Laboratory Results - last 24 hr 12/18/18 12/18/18 Range/Units 04:30 04:30 WBC 15.6 H (4.5-11.0) K/uL RBC 3.73 L (4.30-5.90) M/uL Hgb 11.3 L (12.0-15.0) g/dL Hct 33.8 L (40.0-54.0) % MCV 91 (80-98) fL MCH 30 (27-31) pg MCHC 33 (32-36) % Plt Count 333 (150-400) K/uL Sodium 138 L (140-148) mmol/L Potassium 3.7 (3.6-5.2) mmol/L Chloride 100 (100-108) mmol/L Carbon Dioxide 28 (21-32) mmol/L Anion Gap 13.7 (5.0-14.0) mmol/L BUN 7 (7-18) mg/dL Creatinine 1.0 (0.8-1.3) mg/dL Est Cr Clr Drug Dosing 130.49 mL/min Estimated GFR (MDRD) > 60 (>60) Glucose 99 (74-106) mg/dL Calcium 8.6 (8.5-10.1) mg/dL [place] Results Last 24 Hrs: Microbiology 12/14/18 20:01 Gram Stain - Final Abdominal Fluid - Aspirate Wound Culture - Final Escherichia Coli Anaerobic Culture - Final NO GROWTH AFTER 3 DAYS Med Orders - Current: Current Medications Hydrocodone Bitart/Acetaminophen ([place] 325-5 Mg) 1 - 2 tab PO Q4H PRN PRN Reason: Pain Last Admin: 12/18/18 16:52 Dose: 2 tab Enoxaparin Sodium (Lovenox) 40 mg SUBCUT Q24H [facility] Last Admin: 12/18/18 16:53 Dose: 40 mg Piperacillin/Tazobactam/ (Dextrose 3.375 gm/ Premix) 50 mls @ 100 mls/hr IV Q6H [facility] Last Admin: 12/18/18 16:44 Dose: 100 mls/hr Potassium Chloride/Dextrose/Sod Cl (D5 1/2 Ns W/ 20 Meq/L Kcl) 1,000 mls @ 0 mls/hr IV ASDIRECTED [facility] Lactobacillus Rhamnosus (Culturelle) 1 cap PO DAILY [facility] Last Admin: 12/18/18 08:50 Dose: 1 cap Naloxone HCl (Narcan) 0.1 mg IV ASDIRECTED PRN PRN Reason: decreased respiratory rate Ondansetron HCl (Zofran) 4 mg IVPUSH Q6H PRN PRN Reason: Nausea/Vomiting Last Admin: 12/16/18 17:20 Dose: 4 mg Discontinued Medications Hydrocodone Bitart/Acetaminophen ([place] 325-5 Mg) 1 tab PO Q4H PRN PRN Reason: Pain Last Admin: 12/16/18 17:09 Dose: 1 tab Bupivacaine HCl (Marcaine 0.5%) Confirm Administered Dose 50 ml .ROUTE .STK-MED ONE Stop: 12/14/18 21:52 Last Admin: 12/14/18 20:55 Dose: 10 ml Bupivacaine HCl (Marcaine 0.5%) Confirm Administered Dose 50 ml .ROUTE .STK-MED ONE Stop: 12/16/18 06:43 Dexamethasone (Dexamethasone) Confirm Administered Dose 4 mg .ROUTE .STK-MED ONE Stop: 12/14/18 16:15 Fentanyl (Sublimaze) Confirm Administered Dose 250 mcg .ROUTE .STK-MED ONE Stop: 12/14/18 16:15 Fentanyl (Sublimaze) Confirm Administered Dose 250 mcg .ROUTE .STK-MED ONE Stop: 12/14/18 20:12 Fentanyl (Sublimaze) Confirm Administered Dose 100 mcg .ROUTE .STK-MED ONE Stop: 12/16/18 07:02 Glycopyrrolate (Robinul) Confirm Administered Dose 1 mg .ROUTE .STK-MED ONE Stop: 12/14/18 16:15 Hydromorphone HCl (Dilaudid) 0.5 mg IVPUSH ONETIME ONE Stop: 12/14/18 11:52 Last Admin: 12/14/18 12:21 Dose: 0.5 mg Hydromorphone HCl (Dilaudid) 0.5 mg IVPUSH ONETIME ONE Stop: 12/14/18 16:30 Last Admin: 12/14/18 16:33 Dose: 0.5 mg Hydromorphone HCl (Dilaudid) Confirm Administered Dose 0.5 mg .ROUTE .STK-MED ONE Stop: 12/14/18 16:33 Last Admin: 12/14/18 18:53 Dose: Not Given Hydromorphone HCl (Dilaudid [place] 15 Mg In Ns 30 Ml) 15 mg IV ASDIRECTED [facility]; Protocol Last Admin: 12/15/18 01:08 Dose: 15 mg Hydromorphone HCl (Dilaudid [place] 15 Mg In Ns 30 Ml) 0 mg IV ASDIRECTED PRN; Protocol PRN Reason: Pain Last Admin: 12/16/18 08:47 Dose: 15 mg Sodium Chloride (Normal Saline) 1,000 mls @ 999 mls/hr IV ASDIRECTED [facility] Last Admin: 12/14/18 12:17 Dose: 999 mls/hr Cefoxitin Sodium 2 gm/ Sodium (Chloride) 50 mls @ 100 mls/hr IV ONETIME ONE Stop: 12/14/18 13:42 Cefoxitin Sodium 2 gm/ Sodium (Chloride) 50 mls @ 100 mls/hr IV ONETIME ONE Stop: 12/14/18 14:14 Last Admin: 12/14/18 21:56 Dose: Not Given Sodium Chloride (Normal Saline) 1,000 mls @ 999 mls/hr IV .BOLUS ONE Stop: 12/14/18 14:48 Last Admin: 12/14/18 13:49 Dose: 999 mls/hr Sodium Chloride (Normal Saline) 1,000 mls @ 250 mls/hr IV ASDIRECTED [facility] Last Admin: 12/14/18 14:53 Dose: 250 mls/hr Piperacillin Sod/Tazobactam (Sod 3.375 gm/ Sodium Chloride) 50 mls @ 100 mls/ hr IV Q6H [facility] Last Admin: 12/15/18 03:46 Dose: 100 mls/hr Potassium Chloride/Dextrose/Sod Cl (D5 1/2 Ns W/ 20 Meq/L Kcl) 1,000 mls @ 150 mls/hr IV ASDIRECTED [facility] Last Infusion: 12/16/18 14:04 Dose: 25 mls/hr Sodium Chloride (Normal Saline) Confirm Administered Dose 500 mls @ as directed .ROUTE .STK-MED ONE Stop: 12/16/18 07:17 Lidocaine/Epinephrine (Xylocaine 1% With Epinephrine 1:100,000) Confirm Administered Dose 50 ml .ROUTE .STK-MED ONE Stop: 12/14/18 21:52 Last Admin: 12/14/18 20:55 Dose: 10 ml Lidocaine/Epinephrine (Xylocaine 1% With Epinephrine 1:100,000) Confirm Administered Dose 50 ml .ROUTE .STK-MED ONE Stop: 12/16/18 06:43 Magnesium Hydroxide (Milk Of Magnesia) 30 ml PO ONETIME ONE Stop: 12/17/18 06:01 Midazolam HCl (Versed 1 Mg/Ml) Confirm Administered Dose 2 mg .ROUTE .STK-MED ONE Stop: 12/14/18 16:15 Neostigmine Methylsulfate (Neostigmine) Confirm Administered Dose 5 mg .ROUTE .STK-MED ONE Stop: 12/14/18 16:15 Ondansetron HCl (Zofran) 4 mg IVPUSH ONETIME ONE Stop: 12/14/18 11:52 Last Admin: 12/14/18 12:21 Dose: 4 mg Ondansetron HCl (Zofran) Confirm Administered Dose 4 mg .ROUTE .STK-MED ONE Stop: 12/14/18 16:15 Potassium Chloride (Klor-Con M20) 20 meq PO BID [facility] Stop: 12/17/18 21:01 Last Admin: 12/17/18 22:07 Dose: 20 meq Propofol (Diprivan 20 Ml) Confirm Administered Dose 200 mg .ROUTE .STK-MED ONE Stop: 12/14/18 16:15 Propofol (Diprivan 20 Ml) Confirm Administered Dose 200 mg .ROUTE .STK-MED ONE Stop: 12/16/18 07:01 Propofol (Diprivan 20 Ml) Confirm Administered Dose 200 mg .ROUTE .STK-MED ONE Stop: 12/16/18 07:31 Rocuronium [place] (Zemuron) Confirm Administered Dose 50 mg .ROUTE .STK-MED ONE Stop: 12/14/18 16:15 Rocuronium [place] (Zemuron) Confirm Administered Dose 50 mg .ROUTE .STK-MED ONE Stop: 12/14/18 20:12 Succinylcholine Chloride (Quelicin) Confirm Administered Dose 200 mg .ROUTE .STK -MED ONE Stop: 12/14/18 16:15 - Exam Wound/Incisions: Healing Well, No Drainage Quality Assessment: DVT Prophylaxis General: Alert, Oriented, Cooperative, No Acute Distress Lungs: Clear to Auscultation Cardiovascular: Regular Rate GI/Abdominal Exam: Normal Bowel Sounds, Other (Incisions appear well with no evidence of infection. ) Extremities: Normal Inspection Skin: Warm, Dry, Intact Neurological: No New Focal Deficit Psy/Mental Status: Alert, Normal Affect, Normal Mood - Problem List & Annotations (1) Acute appendicitis SNOMED Code(s): 95066426 Code(s): K35.80 - UNSPECIFIED ACUTE APPENDICITIS Status: Acute Current Visit: Yes Qualifiers: Acute appendicitis type: with generalized peritonitis Appendicitis perforation presence: with perforation - Problem List Review Problem List Initiated/Reviewed/Updated: Yes - My Orders Last 24 Hours: Active Orders 24 hr Category Date Time Status BASIC METABOLIC PANEL,BMP [CHEM] DAILY Lab 12/19/18 05:11 Ordered BASIC METABOLIC PANEL,BMP [CHEM] DAILY Lab 12/20/18 05:11 Ordered CBC W/O DIFF,HEMOGRAM [HEME] DAILY Lab 12/19/18 05:11 Ordered CBC W/O DIFF,HEMOGRAM [HEME] DAILY Lab 12/20/18 05:11 Ordered Medication Orders Hydrocodone Bitart/Acetaminophen ([place] 325-5 Mg) 1 - 2 tab PO Q4H PRN PRN Reason: Pain Last Admin: 12/18/18 16:52 Dose: 2 tab Admin: 12/18/18 12:52 Dose: 2 tab Admin: 12/18/18 08:51 Dose: 2 tab Admin: 12/18/18 04:10 Dose: 2 tab Admin: 12/17/18 23:18 Dose: 2 tab Admin: 12/17/18 19:45 Dose: 2 tab Admin: 12/17/18 15:37 Dose: 2 tab Admin: 12/17/18 11:24 Dose: 2 tab Admin: 12/17/18 07:20 Dose: 2 tab Admin: 12/17/18 03:01 Dose: 2 tab Admin: 12/16/18 21:27 Dose: 2 tab Enoxaparin Sodium (Lovenox) 40 mg SUBCUT Q24H [facility] Last Admin: 12/18/18 16:53 Dose: 40 mg Admin: 12/17/18 16:09 Dose: 40 mg Admin: 12/16/18 17:10 Dose: 40 mg Admin: 12/15/18 15:21 Dose: 40 mg Piperacillin/Tazobactam/ (Dextrose 3.375 gm/ Premix) 50 mls @ 100 mls/hr IV Q6H [facility] Last Admin: 12/18/18 16:44 Dose: 100 mls/hr Admin: 12/18/18 10:19 Dose: 100 mls/hr Admin: 12/18/18 04:11 Dose: 100 mls/hr Admin: 12/17/18 22:07 Dose: 100 mls/hr Admin: 12/17/18 16:11 Dose: 100 mls/hr Admin: 12/17/18 09:55 Dose: 100 mls/hr Admin: 12/17/18 03:02 Dose: 100 mls/hr Admin: 12/16/18 21:28 Dose: 100 mls/hr Admin: 12/16/18 17:24 Dose: 100 mls/hr Admin: 12/16/18 09:59 Dose: 100 mls/hr Admin: 12/16/18 03:44 Dose: 100 mls/hr Admin: 12/15/18 21:00 Dose: 100 mls/hr Admin: 12/15/18 15:21 Dose: 100 mls/hr Admin: 12/15/18 10:23 Dose: 100 mls/hr Potassium Chloride/Dextrose/Sod Cl (D5 1/2 Ns W/ 20 Meq/L Kcl) 1,000 mls @ 0 mls/hr IV ASDIRECTED [facility] Lactobacillus Rhamnosus (Culturelle) 1 cap PO DAILY [facility] Last Admin: 12/18/18 08:50 Dose: 1 cap Admin: 12/17/18 10:48 Dose: 1 cap Naloxone HCl (Narcan) 0.1 mg IV ASDIRECTED PRN PRN Reason: decreased respiratory rate Ondansetron HCl (Zofran) 4 mg IVPUSH Q6H PRN PRN Reason: Nausea/Vomiting Last Admin: 12/16/18 17:20 Dose: 4 mg - Assessment Assessment (Free Text/Narrative):: He appears well. WBC up to 15,600. His cultures grew E coli, but multiple other organisms were present. - Plan Plan (Free Text/Narrative):: No change.
[2018-12-19] MEDS: Acetaminophen/HYDROcodone 325-5 MG Tab PO PRN ×5 (03:10→21:24)
[2018-12-19] MEDS: Piperacillin/Tazobactam/Dext 3.375 GM in Premix Bag 1 BAG IV SCH ×4 (03:11→21:21)
[2018-12-19] MEDS: Lactobacillus Rhamnosus GG (Probiotic) Cap PO SCH (09:39)
[2018-12-19] MEDS: Enoxaparin 40 MG/0.4 ML Syringe SUBCUT SCH (16:18)
[2018-12-20] MEDS: Acetaminophen/HYDROcodone 325-5 MG Tab PO PRN ×3 (03:24→11:39)
[2018-12-20] MEDS: Piperacillin/Tazobactam/Dext 3.375 GM in Premix Bag 1 BAG IV SCH ×2 (03:54→10:04)
[2018-12-20] MEDS: Lactobacillus Rhamnosus GG (Probiotic) Cap PO SCH (10:00)
--- NOTE | 2018-12-20 12:18 | PCM.DCSUM1 ---
Discharge Summary - Hospital Course Free Text/Narrative:: This 33 year old white male presented to the clinic and was referred to the ER 6 weeks ago with 2 1/2 days of diffuse abdominal pain which moved to his lower abdomen and was followed by nausea and vomiting. He was found to be afebrile, be quite tender with peritoneal signs, had a WBC of about 28 K, and a CT scan showed acute appendicitis. He was taken to the OR for a laparoscopic appendectomy and was found to have perforated retrocecal appendicitis. He had to be converted to open. He was treated with IV Zosyn. After 6 days he was afebrile for many days, eating well, having today normal BM's, WBC falling to about 13 K today, and wants to go home. He is discharged to home at this time in good condition to continue oral antibiotics for another week. Diagnosis: Stroke: No - Discharge Data Discharge Date: 12/20/18 Discharge Disposition: Home, Self-Care 01 Condition: Good - Discharge Diagnosis/Problem(s) (1) Acute appendicitis SNOMED Code(s): 89196521 ICD Code: K35.80 - UNSPECIFIED ACUTE APPENDICITIS Status: Acute Current Visit: Yes Qualifiers: Acute appendicitis type: with generalized peritonitis Appendicitis perforation presence: with perforation - Patient Summary/Data Operative Procedure(s) Performed: Laparoscopic converted to open appendectomy. Consults: Consultations 12/14/18 21:08 Respiratory Care Assess and Treatment [CONS] Routine Comment: Physician Instructions: Post-Op Pneumonia Prevention Hospital Course: See above narrative. - Patient Instructions Diet: Usual Diet as Tolerated Activity: No Lifting Over 10 Pounds (For five more weeks. ), No Strenuous Activities (For five more weeks. ) Driving, Other: Do not drive if taking narcotic pain medication Showering/Bathing: May Shower Notify Provider of: Fever, Increased Pain, Swelling and Redness, Drainage, Nausea and/or Vomiting - Discharge Plan *PRESCRIPTION DRUG MONITORING PROGRAM REVIEWED*: No *COPY OF PRESCRIPTION DRUG MONITORING REPORT IN PATIENT MALIK: No Prescriptions/Med Rec: Acetaminophen/HYDROcodone [[place] 325-5 MG] 1 - 2 tab PO Q6H PRN #30 tablet PRN Reason: Pain Amoxicillin/Potassium Clav [Augmentin 875-125 Tablet] 1 each PO BID #14 tablet Home Medications: Home Meds Ibuprofen 800 mg PO Q5H PRN 12/14/18 [History] Acetaminophen/HYDROcodone [[place] 325-5 MG] 1 - 2 tab PO Q6H PRN #30 tablet 12/20 [Rx] Amoxicillin/Potassium Clav [Augmentin 875-125 Tablet] 1 each PO BID #14 tablet 12/20/18 [Rx] Lactobacillus Rhamnosus GG [Culturelle] 1 cap PO DAILY cap 12/20/18 [Rx] Forms: ED Department Discharge Referrals: PCP,None [Primary Care Provider] - Atul Bardales MD [Physician] - (See me in [facility] on 12/25/2018 for review and staple removal. ) - Discharge Summary/Plan Comment DC Time >30 min.: Yes Discharge Summary/Plan Comment: See above narrative. - Patient Data Vitals - Most Recent: Last Vital Signs Temp 97.6 F 12/20/18 10:50 Pulse 71 12/20/18 10:50 Resp 16 12/20/18 10:50 BP 137/74 12/20/18 10:50 Pulse Ox 97 12/20/18 10:50 Weight - Most Recent: 249 lb 15.997 oz I&O - Last 24 hours: Intake & Output 12/19/18 12/20/18 12/20/18 22:59 06:59 14:59 Intake Total 50 250 Balance 50 250 Lab Results - Last 24 hrs: Laboratory Results - last 24 hr 12/20/18 12/20/18 Range/Units 05:27 05:27 WBC 13.4 H (4.5-11.0) K/uL RBC 3.77 L (4.30-5.90) M/uL Hgb 11.3 L (12.0-15.0) g/dL Hct 35.5 L (40.0-54.0) % MCV 94 (80-98) fL MCH 30 (27-31) pg MCHC 32 (32-36) % Plt Count 410 H (150-400) K/uL Sodium 138 L (140-148) mmol/L Potassium 3.8 (3.6-5.2) mmol/L Chloride 103 (100-108) mmol/L Carbon Dioxide 27 (21-32) mmol/L Anion Gap 11.8 (5.0-14.0) mmol/L BUN 9 (7-18) mg/dL Creatinine 1.0 (0.8-1.3) mg/dL Est Cr Clr Drug Dosing 130.49 mL/min Estimated GFR (MDRD) > 60 (>60) Glucose 97 (74-106) mg/dL Calcium 8.9 (8.5-10.1) mg/dL SAYDA Results - Last 24 hrs: Microbiology 12/19/18 19:55 Clostridioides difficile (PCR) - Final Stool / Feces NEGATIVE CDIFF TOXIN 12/19/18 19:55 Stool for WBCs - Final Stool / Feces NO WBC SEEN Med Orders - Current: Current Medications Hydrocodone Bitart/Acetaminophen ([place] 325-5 Mg) 1 - 2 tab PO Q4H PRN PRN Reason: Pain Last Admin: 12/20/18 11:39 Dose: 2 tab Enoxaparin Sodium (Lovenox) 40 mg SUBCUT Q24H [facility] Last Admin: 12/19/18 16:18 Dose: 40 mg Piperacillin/Tazobactam/ (Dextrose 3.375 gm/ Premix) 50 mls @ 100 mls/hr IV Q6H [facility] Last Admin: 12/20/18 10:04 Dose: 100 mls/hr Potassium Chloride/Dextrose/Sod Cl (D5 1/2 Ns W/ 20 Meq/L Kcl) 1,000 mls @ 0 mls/hr IV ASDIRECTED [facility] Lactobacillus Rhamnosus (Culturelle) 1 cap PO DAILY [facility] Last Admin: 12/20/18 10:00 Dose: 1 cap Ondansetron HCl (Zofran) 4 mg IVPUSH Q6H PRN PRN Reason: Nausea/Vomiting Last Admin: 12/16/18 17:20 Dose: 4 mg Discontinued Medications Hydrocodone Bitart/Acetaminophen ([place] 325-5 Mg) 1 tab PO Q4H PRN PRN Reason: Pain Last Admin: 12/16/18 17:09 Dose: 1 tab Bupivacaine HCl (Marcaine 0.5%) Confirm Administered Dose 50 ml .ROUTE .STK-MED ONE Stop: 12/14/18 21:52 Last Admin: 12/14/18 20:55 Dose: 10 ml Bupivacaine HCl (Marcaine 0.5%) Confirm Administered Dose 50 ml .ROUTE .STK-MED ONE Stop: 12/16/18 06:43 Dexamethasone (Dexamethasone) Confirm Administered Dose 4 mg .ROUTE .STK-MED ONE Stop: 12/14/18 16:15 Fentanyl (Sublimaze) Confirm Administered Dose 250 mcg .ROUTE .STK-MED ONE Stop: 12/14/18 16:15 Fentanyl (Sublimaze) Confirm Administered Dose 250 mcg .ROUTE .STK-MED ONE Stop: 12/14/18 20:12 Fentanyl (Sublimaze) Confirm Administered Dose 100 mcg .ROUTE .STK-MED ONE Stop: 12/16/18 07:02 Glycopyrrolate (Robinul) Confirm Administered Dose 1 mg .ROUTE .STK-MED ONE Stop: 12/14/18 16:15 Hydromorphone HCl (Dilaudid) 0.5 mg IVPUSH ONETIME ONE Stop: 12/14/18 11:52 Last Admin: 12/14/18 12:21 Dose: 0.5 mg Hydromorphone HCl (Dilaudid) 0.5 mg IVPUSH ONETIME ONE Stop: 12/14/18 16:30 Last Admin: 12/14/18 16:33 Dose: 0.5 mg Hydromorphone HCl (Dilaudid) Confirm Administered Dose 0.5 mg .ROUTE .STK-MED ONE Stop: 12/14/18 16:33 Last Admin: 12/14/18 18:53 Dose: Not Given Hydromorphone HCl (Dilaudid [employer] Technician 15 Mg In Ns 30 Ml) 15 mg IV ASDIRECTED FABIO; Protocol Last Admin: 12/15/18 01:08 Dose: 15 mg Hydromorphone HCl (Dilaudid Botany Technician 15 Mg In Ns 30 Ml) 0 mg IV ASDIRECTED PRN; Protocol PRN Reason: Pain Last Admin: 12/16/18 08:47 Dose: 15 mg Sodium Chloride (Normal Saline) 1,000 mls @ 999 mls/hr IV ASDIRECTED [facility]ABIO Last Admin: 12/14/18 12:17 Dose: 999 mls/hr Cefoxitin Sodium 2 gm/ Sodium (Chloride) 50 mls @ 100 mls/hr IV ONETIME ONE Stop: 12/14/18 13:42 Cefoxitin Sodium 2 gm/ Sodium (Chloride) 50 mls @ 100 mls/hr IV ONETIME ONE Stop: 12/14/18 14:14 Last Admin: 12/14/18 21:56 Dose: Not Given Sodium Chloride (Normal Saline) 1,000 mls @ 999 mls/hr IV .BOLUS ONE Stop: 12/14/18 14:48 Last Admin: 12/14/18 13:49 Dose: 999 mls/hr Sodium Chloride (Normal Saline) 1,000 mls @ 250 mls/hr IV ASDIRECTED [facility]ABIO Last Admin: 12/14/18 14:53 Dose: 250 mls/hr Piperacillin Sod/Tazobactam (Sod 3.375 gm/ Sodium Chloride) 50 mls @ 100 mls/ hr IV Q6H [facility] Last Admin: 12/15/18 03:46 Dose: 100 mls/hr Potassium Chloride/Dextrose/Sod Cl (D5 1/2 Ns W/ 20 Meq/L Kcl) 1,000 mls @ 150 mls/hr IV ASDIRECTED [facility] Last Infusion: 12/16/18 14:04 Dose: 25 mls/hr Sodium Chloride (Normal Saline) Confirm Administered Dose 500 mls @ as directed .ROUTE .STK-MED ONE Stop: 12/16/18 07:17 Lidocaine/Epinephrine (Xylocaine 1% With Epinephrine 1:100,000) Confirm Administered Dose 50 ml .ROUTE .STK-MED ONE Stop: 12/14/18 21:52 Last Admin: 12/14/18 20:55 Dose: 10 ml Lidocaine/Epinephrine (Xylocaine 1% With Epinephrine 1:100,000) Confirm Administered Dose 50 ml .ROUTE .STK-MED ONE Stop: 12/16/18 06:43 Magnesium Hydroxide (Milk Of Magnesia) 30 ml PO ONETIME ONE Stop: 12/17/18 06:01 Midazolam HCl (Versed 1 Mg/Ml) Confirm Administered Dose 2 mg .ROUTE .STK-MED ONE Stop: 12/14/18 16:15 Naloxone HCl (Narcan) 0.1 mg IV ASDIRECTED PRN PRN Reason: decreased respiratory rate Neostigmine Methylsulfate (Neostigmine) Confirm Administered Dose 5 mg .ROUTE .STK-MED ONE Stop: 12/14/18 16:15 Ondansetron HCl (Zofran) 4 mg IVPUSH ONETIME ONE Stop: 12/14/18 11:52 Last Admin: 12/14/18 12:21 Dose: 4 mg Ondansetron HCl (Zofran) Confirm Administered Dose 4 mg .ROUTE .STK-MED ONE Stop: 12/14/18 16:15 Potassium Chloride (Klor-Con M20) 20 meq PO BID [facility]ABIO Stop: 12/17/18 21:01 Last Admin: 12/17/18 22:07 Dose: 20 meq Propofol (Diprivan 20 Ml) Confirm Administered Dose 200 mg .ROUTE .STK-MED ONE Stop: 12/14/18 16:15 Propofol (Diprivan 20 Ml) Confirm Administered Dose 200 mg .ROUTE .STK-MED ONE Stop: 12/16/18 07:01 Propofol (Diprivan 20 Ml) Confirm Administered Dose 200 mg .ROUTE .STK-MED ONE Stop: 12/16/18 07:31 Rocuronium [place] (Zemuron) Confirm Administered Dose 50 mg .ROUTE .STK-MED ONE Stop: 12/14/18 16:15 Rocuronium [place] (Zemuron) Confirm Administered Dose 50 mg .ROUTE .STK-MED ONE Stop: 12/14/18 20:12 Succinylcholine Chloride (Quelicin) Confirm Administered Dose 200 mg .ROUTE .STK -MED ONE Stop: 12/14/18 16:15
== END 2018-12-20 13:53 | disposition home or self-care (01) | DRG 340 ==
LOC: JP.ED 10:48 → JP.SDS 15:07 → JP.MS 16:24
PROVIDERS: ADMIT Surgery; ATTEND Surgery
PROC: 0DTJ0ZZ Resection of Appendix, Open Approach (ICD-10-PCS; principal; 2018-12-14)
PROC: 0DJD4ZZ Inspection of Lower Intestinal Tract, Percutaneous Endoscopic Approach (ICD-10-PCS; 2018-12-14)
PROC: 0WQF0ZZ Repair Abdominal Wall, Open Approach (ICD-10-PCS; 2018-12-16)
DX: K35.32 Acute appendicitis with perforation, localized peritonitis, and gangrene, without abscess (principal); Z53.31 Laparoscopic surgical procedure converted to open procedure; Z48.1 Encounter for planned postprocedural wound closure
CPT/HCPCS: 36415; 74176; 80048; 80053; 81001; 83605; 83690; 85025; 85027; 86140; 87046; 87070; 87075; 87186; 87205; 87493; 87899; 88304; 88341; 88342; 88365; 89055; 94762; 96361; 96365; 96375; 96376; 99285-25; A9270-GY; J0330; J1100; J1170; J1650; J2250; J2405; J2543; J2704; J2710; J3010; J3480; J3490; J7030; J7040; J7050

== ENCOUNTER 2019-01-01 15:55 | Inpatient (IN) | payer OTHER ==
[2019-01-01] MEDS ORDERED: Lactated Ringers 1,000 ML IV ONE (16:00)
[2019-01-01] MEDS ORDERED: Naloxone 0.4 MG/ML SDV IV PRN (16:09)
[2019-01-01] MEDS: HYDROmorphone/Normal Saline 15 MG/30 ML PCA IV PRN (16:54)
[2019-01-01] MEDS: Ampicillin/Sulbactam Na 3 GM in Sodium Chloride 0.9% 100 ML IV SCH ×2 (17:33→22:38)
[2019-01-01] MEDS: Pantoprazole 40 MG Vial IV SCH (17:41)
[2019-01-01] MEDS: Aztreonam/Dextrose-Water 1 GM in Premix Bag 1 BAG IV SCH (18:11)
[2019-01-01] MEDS: Acetaminophen 500 MG Tab PO SCH ×2 (18:20→23:39)
[2019-01-01] MEDS: Dextrose 5%-Lactated Ringers 1,000 ML IV SCH (20:37)
[2019-01-02] MEDS: Dextrose 5%-Lactated Ringers 1,000 ML IV SCH ×4 (02:09→23:49)
[2019-01-02] MEDS: Aztreonam/Dextrose-Water 1 GM in Premix Bag 1 BAG IV SCH ×3 (02:09→17:35)
[2019-01-02] MEDS: Ampicillin/Sulbactam Na 3 GM in Sodium Chloride 0.9% 100 ML IV SCH ×4 (04:09→22:05)
[2019-01-02] MEDS: Acetaminophen 500 MG Tab PO SCH ×3 (05:18→23:47)
[2019-01-02] MEDS: hydrOXYzine HCl 100 MG/2 ML SDV IM PRN ×3 (05:30→15:55)
[2019-01-02] MEDS ORDERED: Meropenem 500 MG SDV ONE ×2 (06:47→08:01)
[2019-01-02] MEDS ORDERED: fentaNYL 250 MCG/5 ML SDV ONE ×2 (07:06→08:11)
[2019-01-02] MEDS ORDERED: Propofol 200 MG/20 ML SDV ONE (07:07)
[2019-01-02] MEDS ORDERED: Rocuronium 50 MG/5 ML Vial ONE ×2 (07:07→08:05)
[2019-01-02] MEDS ORDERED: Glycopyrrolate 0.2 MG/ML 5 ML MDV ONE (07:07)
[2019-01-02] MEDS ORDERED: Ondansetron 4 MG/2 ML SDV ONE (07:07)
[2019-01-02] MEDS ORDERED: Dexamethasone 4 MG/ML SDV ONE (07:07)
[2019-01-02] MEDS ORDERED: Neostigmine Methylsulfate 1 MG/ML 5 ML Syringe ONE (07:07)
[2019-01-02] MEDS ORDERED: Succinylcholine 200 MG/10 ML MDV ONE (07:07)
[2019-01-02] MEDS ORDERED: Ketamine 50 MG in Sodium Chloride 0.9% 49.5 ML IV SCH (07:30)
[2019-01-02] MEDS ORDERED: Ketamine 500 MG/5 ML MDV IV SCH (07:30)
[2019-01-02] MEDS ORDERED: Ropivacaine 55 ML, Dexamethasone 8 MG, EPINEPHrine 0.4 MG, Sodium Chloride 0.9% 22.6 ML NERVRT SCH ×4 (07:30)
[2019-01-02] MEDS ORDERED: Sodium Chloride 0.9% 10 ML ONE (08:11)
[2019-01-02] MEDS ORDERED: Lactated Ringers 1,000 ML ONE (08:12)
[2019-01-02] MEDS ORDERED: fentaNYL 100 MCG/2 ML SDV IV ONE ×2 (09:45→10:00)
[2019-01-02] MEDS: Cyclobenzaprine 10 MG Tab PO PRN ×2 (10:54→17:10)
--- NOTE | 2019-01-02 11:15 | PN ---
DATE OF SERVICE: 01/02/2019 SUBJECTIVE: Curt is n.p.o. He will be having surgery today. He was admitted yesterday following an appendectomy, but developed an abdominal abscess. He is first case this morning. He has no abdominal pain, but is reporting some left great toe pain. He said he has had it before and he calls it turf toe. Uric acid was added on to his already scheduled labs and it was 4.2. REVIEW OF SYSTEMS: Remainder of review of systems negative for any pertinent positives and negatives. OBJECTIVE: GENERAL: Curt Blanco is a 33-year-old male. He is alert and orientated. VITAL SIGNS: TPR 98.2, 89, 16, blood pressure 115/59. HEENT: Negative. NECK: Supple. HEART: Regular rate and rhythm. LUNGS: Clear. ABDOMEN: Dressings dry and intact. Abdominal binder is on. EXTREMITIES: Without peripheral edema. ASSESSMENT: Abdominal abscess, status post appendectomy, ruptured. PLAN: Orders to be written postoperatively. Chloe Bragg PA-C /[id number]
[2019-01-02] MEDS: Ondansetron 4 MG/2 ML SDV IVPUSH PRN (11:35)
[2019-01-02] MEDS ORDERED: Acetaminophen 1,000 MG in Premix Bag 1 BAG IV ONE (12:00)
[2019-01-02] MEDS: HYDROmorphone/Normal Saline 15 MG/30 ML PCA IV PRN ×2 (16:15→18:54)
--- NOTE | 2019-01-02 16:51 | CRLCR ---
Indication: Left 1st toe pain Technique: Three views left foot Comparison: None Findings: Bones: Alignment is normal. No fractures or bone lesions. Joint spaces: Unremarkable. Soft tissues: Unremarkable. Impression: Negative. Dictated by Sue Ventura MD @ Jan 02 2019 4:49PM Signed by Dr. Sue Ventura @ Jan 02 2019 4:49PM
[2019-01-02] MEDS: Pantoprazole 40 MG Vial IV SCH (17:11)
[2019-01-02] MEDS ORDERED: hydrOXYzine HCl 100 MG/2 ML SDV IM ONE (18:02)
[2019-01-02] MEDS ORDERED: Meperidine PF 100 MG/ML Syringe IM ONE (18:02)
[2019-01-03] MEDS: Aztreonam/Dextrose-Water 1 GM in Premix Bag 1 BAG IV SCH ×3 (02:35→17:19)
[2019-01-03] MEDS: Ampicillin/Sulbactam Na 3 GM in Sodium Chloride 0.9% 100 ML IV SCH ×4 (03:04→22:18)
[2019-01-03] MEDS: HYDROmorphone/Normal Saline 15 MG/30 ML PCA IV PRN ×2 (05:33→15:29)
[2019-01-03] MEDS: Acetaminophen 500 MG Tab PO SCH ×3 (05:35→17:20)
[2019-01-03] MEDS: Dextrose 5%-Lactated Ringers 1,000 ML IV SCH ×2 (06:45→17:44)
--- NOTE | 2019-01-03 08:13 | PN ---
DATE OF SERVICE: 01/02/2019 This is in response to a consult from Dr. Daron Dickens regarding pain in the left great toe. Thank you very much, Dr. Dickens, for the referral of this patient to our service. SUBJECTIVE: The patient is a 33-year-old male, seen at bedside. The patient and nurses who were with him relate that last night he had a great deal of pain in his left great toe, and it was a sharp pain. He relates that he did not have any injuries prior to the onset of pain and that Dilaudid did not seem to help with it very much, and he took Vistaril after that. The Vistaril did help some. He relates he had a turf toe injury about a year ago but this was way more intense. He denies having any other problems with his feet at this time and right now the pain is not that bad. PAST MEDICAL HISTORY: The patient has a history of appendicitis and abdominal abscesses. REVIEW OF SYSTEMS: ENDOCRINE: The patient denies history of diabetes mellitus. NEUROLOGICAL: Denies history of numbness or tingling in his feet. FAMILY HISTORY: The patient denies history of bleeding or clotting disorders in his family. SOCIAL HISTORY: The patient denies tobacco use and relates he has an occasional alcoholic beverage. OBJECTIVE: GENERAL: The patient was alert and oriented x3 and in no acute distress. VITAL SIGNS: Vitals per EMR. VASCULAR: Revealed the pedal pulses were palpable, DP and PT bilaterally. Capillary refill time was less than 3 seconds in digits one through five bilaterally. DERMATOLOGICAL: Examination revealed that there were no open wounds, no lacerations, and no abrasions present in the foot or ankle bilaterally. MUSCULOSKELETAL: Examination showed no gross deformities present in the foot or ankle bilaterally. There was no pain on palpation in the foot or ankle bilaterally. Dorsiflexion of the first metatarsophalangeal joint bilaterally is approximately 45 degrees on the right foot and approximately 35 degrees on the left foot. There was some tenderness with maximum plantar flexion of the left first metatarsophalangeal joint, but no pain on palpation of the sesamoids on the left foot. NEUROLOGICAL: Examination revealed sensation was grossly intact. RADIOGRAPHIC EXAMINATION: Plain films of the left foot three views are pending. LABS: Uric acid was checked and uric acid was within normal limits. White blood cell count was 11.9. A 24-hour urine uric acid collection results are pending. ASSESSMENT: Pain, left first metatarsophalangeal joint. PLAN: The patient was examined and evaluated. We ordered an x-ray, three views of the left foot, which we will examine and discuss with the patient next week when we are back in- house, and we will have him placed in a postop shoe, a stiff-soled shoe in order to stabilize the joint, also we ordered 24-hour urine uric acid collection in order to see if he is undersecreting, and the patient related understanding. If the patient is discharged prior to next week, we will see him either on Tuesday or Tuesday in our clinic for followup. The patient related understanding. John Valladares DPM /[id number]
--- NOTE | 2019-01-03 10:13 | PCM.SURGPN ---
<Jennifer Xiong - Last Filed: 01/03/19 15:27> - General Info Date of Service: 01/03/19 Date of Surgery/Procedure: 01/02/19 POD#: 1 Functional Status: Reports: Pain Controlled - Review of Systems General: Reports: No Symptoms HEENT: Reports: No Symptoms Pulmonary: Reports: No Symptoms Cardiovascular: Reports: No Symptoms Gastrointestinal: Reports: Abdominal Pain (Pain controlled after additional pain control was given during the night, [employer] increased ) Genitourinary: Reports: No Symptoms Musculoskeletal: Reports: No Symptoms Skin: Reports: No Symptoms Neurological: Reports: No Symptoms Psychiatric: Reports: No Symptoms - Patient Data Vitals - Most Recent: Last Vital Signs Temp 37.1 C 01/03/19 07:47 Pulse 96 01/03/19 07:29 Resp 18 01/03/19 07:47 BP 112/60 01/03/19 07:47 Pulse Ox 92 L 01/03/19 07:55 Weight - Most Recent: 245 lb I&O - Last 24 Hours: Intake & Output 01/02/19 01/03/19 01/03/19 22:59 06:59 14:59 Intake Total 260 1956 50 Output Total 1245 1360 300 Balance -985 596 -250 Med Orders - Current: Current Medications Acetaminophen (Tylenol Extra Strength) 1,000 mg PO Q6H [facility] Last Admin: 01/03/19 05:35 Dose: 1,000 mg Ropivacaine 55 ml/Dexamethasone 8 mg/Epinephrine HCl 0.4 mg/ Sodium Chloride 22.6 ml 0 ml NERVRT ASDIRECTED FABIO Cyclobenzaprine HCl (Flexeril) 10 mg PO Q6H PRN PRN Reason: Muscle Spasms Last Admin: 01/02/19 17:10 Dose: 10 mg Hydromorphone HCl (Dilaudid Emergency Services Director 15 Mg In Ns 30 Ml) 15 mg IV ASDIRECTED PRN; Protocol PRN Reason: Pain Last Admin: 01/03/19 05:33 Dose: 15 mg Hydroxyzine HCl (Vistaril) 100 mg IM Q4H PRN PRN Reason: Pain Last Admin: 01/02/19 15:55 Dose: 100 mg Ampicillin Sodium/Sulbactam (Sodium 3 gm/ Sodium Chloride) 100 mls @ 200 mls/ hr IV Q6H [facility] Last Admin: 01/03/19 03:04 Dose: 200 mls/hr Aztreonam/Dextrose 1 gm/ (Premix) 50 mls @ 100 mls/hr IV Q8H [facility] Last Admin: 01/03/19 09:08 Dose: 100 mls/hr Dextrose/Lactated Ringer's (Dextrose 5%-Lactated Ringers) 1,000 mls @ 100 mls/ hr IV ASDIRECTED FABIO Naloxone HCl (Narcan) 0.1 mg IV ASDIRECTED PRN PRN Reason: decreased respiratory rate Non-Formulary Medication (Tap Block, Pharmacy To Dose) 0 ml NERVRT ONETIME ONE Stop: 01/04/19 07:31 Ondansetron HCl (Zofran) 4 mg IVPUSH Q4H PRN PRN Reason: Nausea Last Admin: 01/02/19 11:35 Dose: 4 mg Pantoprazole Sodium (Protonix Iv) 40 mg IV Q24H [facility] Last Admin: 01/02/19 17:11 Dose: 40 mg Discontinued Medications Acetaminophen (Tylenol Extra Strength) 1,000 mg PO Q6H [facility] Last Admin: 01/02/19 05:18 Dose: 1,000 mg Ropivacaine 55 ml/Dexamethasone 8 mg/Epinephrine HCl 0.4 mg/ Sodium Chloride 22.6 ml 0 ml NERVRT ASDIRECTED [facility] Last Admin: 01/02/19 09:50 Dose: 80 syringe Dexamethasone (Dexamethasone) Confirm Administered Dose 4 mg .ROUTE .STK-MED ONE Stop: 01/02/19 07:08 Fentanyl (Sublimaze) Confirm Administered Dose 250 mcg .ROUTE .STK-MED ONE Stop: 01/02/19 07:07 Fentanyl (Sublimaze) Confirm Administered Dose 250 mcg .ROUTE .STK-MED ONE Stop: 01/02/19 08:12 Fentanyl (Sublimaze) 50 mcg IV ONETIME ONE Stop: 01/02/19 09:46 Last Admin: 01/02/19 09:48 Dose: 50 mcg Fentanyl (Sublimaze) 50 mcg IV ONETIME ONE Stop: 01/02/19 10:01 Last Admin: 01/02/19 09:59 Dose: 50 mcg Glycopyrrolate (Robinul) Confirm Administered Dose 1 mg .ROUTE .STK-MED ONE Stop: 01/02/19 07:08 Hydromorphone HCl (Dilaudid Emergency Services Director 15 Mg In Ns 30 Ml) 0 mg IV ASDIRECTED PRN; Protocol PRN Reason: [employer] PAIN CONTROL Last Admin: 01/02/19 16:15 Dose: 15 mg Hydroxyzine HCl (Vistaril) 50 mg IM ONETIME ONE Stop: 01/02/19 18:03 Last Admin: 01/02/19 18:49 Dose: 50 mg Lactated Ringer's (Ringers, Lactated) 1,000 mls @ 333.333 mls/hr IV ONETIME ONE Stop: 01/01/19 18:59 Last Admin: 01/01/19 17:00 Dose: 333.333 mls/hr Dextrose/Lactated Ringer's (Dextrose 5%-Lactated Ringers) 1,000 mls @ 125 mls/ hr IV ASDIRECTED [facility] Last Admin: 01/02/19 10:00 Dose: 125 mls/hr Ketamine HCl 50 mg/ Sodium (Chloride) 50 mls @ 26.7 mls/hr IV ASDIRECTED [facility] Linezolid (Zyvox) Confirm Administered Dose 300 mls @ as directed .ROUTE .STK- MED ONE Stop: 01/02/19 06:48 Sodium Chloride (Normal Saline) Confirm Administered Dose 10 mls @ as directed .ROUTE .STK-MED ONE Stop: 01/02/19 08:12 Lactated Ringer's (Ringers, Lactated) Confirm Administered Dose 1,000 mls @ as directed .ROUTE .STK-MED ONE Stop: 01/02/19 08:13 Dextrose/Lactated Ringer's (Dextrose 5%-Lactated Ringers) 1,000 mls @ 175 mls/ hr IV ASDIRECTED [facility] Last Admin: 01/03/19 06:45 Dose: 175 mls/hr Acetaminophen 1,000 mg/ Premix 100 mls @ 400 mls/hr IV ONETIME ONE Stop: 01/02/19 12:14 Last Admin: 01/02/19 12:09 Dose: 400 mls/hr Ketamine HCl (Ketalar) 45 mg IV ASDIRECTED [facility] Meperidine HCl (Demerol) 100 mg IM ONETIME ONE Stop: 01/02/19 18:03 Last Admin: 01/02/19 18:49 Dose: 100 mg Meropenem (Merrem) Confirm Administered Dose 500 mg .ROUTE .STK-MED ONE Stop: 01/02/19 06:48 Last Admin: 01/02/19 08:00 Dose: 500 mg Meropenem (Merrem) Confirm Administered Dose 500 mg .ROUTE .STK-MED ONE Stop: 01/02/19 08:02 Last Admin: 01/02/19 09:00 Dose: 500 mg Neostigmine Methylsulfate (Neostigmine) Confirm Administered Dose 5 mg .ROUTE .STK-MED ONE Stop: 01/02/19 07:08 Ondansetron HCl (Zofran) Confirm Administered Dose 4 mg .ROUTE .STK-MED ONE Stop: 01/02/19 07:08 Propofol (Diprivan 20 Ml) Confirm Administered Dose 200 mg .ROUTE .STK-MED ONE Stop: 01/02/19 07:08 Rocuronium [place] (Zemuron) Confirm Administered Dose 50 mg .ROUTE .STK-MED ONE Stop: 01/02/19 07:08 Rocuronium [place] (Zemuron) Confirm Administered Dose 50 mg .ROUTE .STK-MED ONE Stop: 01/02/19 08:06 Succinylcholine Chloride (Quelicin) Confirm Administered Dose 200 mg .ROUTE .STK -MED ONE Stop: 01/02/19 07:08 - Exam Wound/Incisions: Dressing Dry and Intact, Other (dressing has mild drainage along the left side of wound. [address]) General: Alert, Oriented, Cooperative Neck: Supple Lungs: Clear to Auscultation Cardiovascular: Regular Rate, Regular Rhythm GI/Abdominal Exam: No: Distended Extremities: Normal Inspection Neurological: No New Focal Deficit Psy/Mental Status: Alert - Problem List Review Problem List Initiated/Reviewed/Updated: Yes - My Orders Last 24 Hours: Active Orders 24 hr Category Date Time Status Ambulate [RC] ASDIRECTED Care 01/02/19 11:28 Active Drain Management [RC] ASDIRECTED Care 01/02/19 11:29 Active Head of Bed Elevation [RC] CONTINUOUS Care 01/02/19 11:28 Active Intake and Output [RC] ASDIRECTED Care 01/02/19 11:29 Active Notify Provider Consults [RC] ASDIRECTED Care 01/02/19 11:36 Active Pneumonia Education [RC] UPON Care 01/02/19 11:28 Active RT Incentive Spirometry [RC] Q1HR Care 01/02/19 11:28 Active Turn, Cough, Deep Breathe [RC] Q1HWA Care 01/02/19 11:28 Active Up to Chair [RC] TIDMEALS Care 01/02/19 11:28 Active Urinary Catheter Removal [RC] Per Unit Routine Care 01/02/19 11:29 Inactive Verify Patient Consent Obtain [RC] ASDIRECTED Care 01/04/19 07:30 Active Consult to Physical Therapy [PT Evaluation and Cons 01/02/19 16:33 Active Treatment] [CONS] Routine Consult to Physician [CONS] Routine Cons 01/02/19 11:29 Ordered Respiratory Care Assess and Treatment [CONS] Routine Cons 01/02/19 11:28 Active Nothing Per Oral Diet [DIET] Diet 01/02/19 Lunch Active URIC ACID, 24 HR URINE Routine Lab 01/02/19 15:49 Ordered Acetaminophen [Tylenol Extra Strength] Med 01/02/19 18:00 Active 1,000 mg PO Q6H Cyclobenzaprine [Flexeril] Med 01/02/19 10:44 Active 10 mg PO Q6H PRN Dextrose 5%-Lactated Ringers 1,000 ml Med 01/03/19 07:32 Active IV ASDIRECTED HYDROmorphone/Normal Saline [Dilaudid [employer] 15 MG in NS Med 01/02/19 18:17 Active 30 ML] 15 mg IV ASDIRECTED PRN Ropivacaine [Naropin 0.5%] 55 ml Med 01/04/19 08:00 Active Dexamethasone 8 mg EPINEPHrine [Adrenalin] 0.4 mg Sodium Chloride 0.9% [Normal Saline] 22.6 ml NERVRT ASDIRECTED Tap Block [Tap Block, Pharmacy to Dose] Med 01/04/19 07:30 Once See Dose Instructions NERVRT ONETIME ONE Abdominal Binder [OM.PC] Routine Oth 01/02/19 11:29 Ordered Oral Care [OM.PC] BID Oth 01/02/19 11:30 Ordered Oral Care [OM.PC] BID Oth 01/03/19 11:30 Ordered Pulse Oximetry Continuous Monitoring [OM.PC] Routine Oth 01/02/19 11:29 Ordered Sequential Compression Device [OM.PC] Routine Oth 01/02/19 11:29 Ordered Medication Orders Acetaminophen (Tylenol Extra Strength) 1,000 mg PO Q6H [facility] Last Admin: 01/03/19 05:35 Dose: 1,000 mg Admin: 01/02/19 23:47 Dose: 1,000 mg Admin: 01/02/19 17:10 Dose: 1,000 mg Ropivacaine 55 ml/Dexamethasone 8 mg/Epinephrine HCl 0.4 mg/ Sodium Chloride 22.6 ml 0 ml NERVRT ASDIRECTED F[facility]IO Cyclobenzaprine HCl (Flexeril) 10 mg PO Q6H PRN PRN Reason: Muscle Spasms Last Admin: 01/02/19 17:10 Dose: 10 mg Admin: 01/02/19 10:54 Dose: 10 mg Hydromorphone HCl (Dilaudid Emergency Services Director 15 Mg In Ns 30 Ml) 15 mg IV ASDIRECTED PRN; Protocol PRN Reason: Pain Last Admin: 01/03/19 05:33 Dose: 15 mg Admin: 01/02/19 18:54 Dose: 15 mg Hydroxyzine HCl (Vistaril) 100 mg IM Q4H PRN PRN Reason: Pain Last Admin: 01/02/19 15:55 Dose: 100 mg Admin: 01/02/19 09:50 Dose: 100 mg Admin: 01/02/19 05:30 Dose: 100 mg Ampicillin Sodium/Sulbactam (Sodium 3 gm/ Sodium Chloride) 100 mls @ 200 mls/ hr IV Q6H [facility] Last Admin: 01/03/19 03:04 Dose: 200 mls/hr Admin: 01/02/19 22:05 Dose: 200 mls/hr Admin: 01/02/19 15:55 Dose: 200 mls/hr Admin: 01/02/19 10:51 Dose: 200 mls/hr Admin: 01/02/19 04:09 Dose: 200 mls/hr Admin: 01/01/19 22:38 Dose: 200 mls/hr Admin: 01/01/19 17:33 Dose: 200 mls/hr Aztreonam/Dextrose 1 gm/ (Premix) 50 mls @ 100 mls/hr IV Q8H [facility] Last Admin: 01/03/19 09:08 Dose: 100 mls/hr Admin: 01/03/19 02:35 Dose: 100 mls/hr Admin: 01/02/19 17:35 Dose: 100 mls/hr Admin: 01/02/19 11:25 Dose: 100 mls/hr Admin: 01/02/19 02:09 Dose: 100 mls/hr Admin: 01/01/19 18:11 Dose: 100 mls/hr Dextrose/Lactated Ringer's (Dextrose 5%-Lactated Ringers) 1,000 mls @ 100 mls/ hr IV ASDIRECTED F[facility]IO Naloxone HCl (Narcan) 0.1 mg IV ASDIRECTED PRN PRN Reason: decreased respiratory rate Non-Formulary Medication (Tap Block, Pharmacy To Dose) 0 ml NERVRT ONETIME ONE Stop: 01/04/19 07:31 Ondansetron HCl (Zofran) 4 mg IVPUSH Q4H PRN PRN Reason: Nausea Last Admin: 01/02/19 11:35 Dose: 4 mg Pantoprazole Sodium (Protonix Iv) 40 mg IV Q24H [facility] Last Admin: 01/02/19 17:11 Dose: 40 mg Admin: 01/01/19 17:41 Dose: 40 mg - Assessment Assessment (Free Text/Narrative):: Exploratory Laparotomy with drainage multifocal intra-abdominal abscess, right colectomy, small bowel resection, mobilization omentum into pelvic Multifocal intra abdominal abscess with focal desoralization and necrosis cecum distal small bowel - Plan Plan (Free Text/Narrative):: Administer Dextrose 5%-Lactated Ringers, 100ml IV as directed, Dextrose 5%- Lactated Ringers 1,000 ml IV as directed. Decrease D5LR to 100ml/hour Use ice chips DAC on 01/04/19, [id number] by Renny Dickens MD. <Chloe Bragg - Last Filed: 01/05/19 15:56> - Patient Data Vitals - Most Recent: Last Vital Signs Temp 97.3 F 01/05/19 14:00 Pulse 74 01/05/19 14:00 Resp 18 01/05/19 14:00 BP 118/67 01/05/19 14:00 Pulse Ox 95 01/05/19 14:00 I&O - Last 24 Hours: Intake & Output 01/05/19 01/05/19 01/05/19 06:59 14:59 22:59 Intake Total 1313 1000 Output Total 1450 375 Balance -137 625 Lab Results Last 24 Hrs: Laboratory Results - last 24 hr 01/02/19 01/05/19 Range/Units 16:00 14:22 WBC 9.1 (4.5-11.0) K/uL RBC 3.92 L (4.30-5.90) M/uL Hgb 11.7 L (12.0-15.0) g/dL Hct 36.6 L (40.0-54.0) % MCV 93 (80-98) fL MCH 30 (27-31) pg MCHC 32 (32-36) % Plt Count 402 H (150-400) K/uL Neut % (Auto) 67 H (36-66) % Lymph % (Auto) 21 L (24-44) % Arroyo % (Auto) 9 H (2-6) % Eos % (Auto) 3 (2-4) % Baso % (Auto) 0 (0-1) % Ur Uric Acid 34.7 (Not Estab.) mg/dL Ur Uric Acid 24 Hr 798.1 H (250.0-750.0) mg/24 hr Boubacar Results Last 24 Hrs: Microbiology 01/02/19 07:50 Gram Stain - Final Abdominal Fluid - Drainage Wound Culture - Final Escherichia Coli Anaerobic Culture - Final NO GROWTH AFTER 3 DAYS Med Orders - Current: Current Medications Allopurinol (Zyloprim) 300 mg PO DAILY [facility] Last Admin: 01/05/19 15:39 Dose: 300 mg Colchicine (Colcrys) 0.6 mg PO BID [facility] Cyclobenzaprine HCl (Flexeril) 10 mg PO Q6H PRN PRN Reason: Muscle Spasms Last Admin: 01/02/19 17:10 Dose: 10 mg Diphenhydramine HCl (Benadryl) 50 mg IVPUSH Q4H PRN PRN Reason: Itching Last Admin: 01/03/19 17:12 Dose: 50 mg Hydroxyzine HCl (Vistaril) 100 mg IM Q4H PRN PRN Reason: Pain Last Admin: 01/03/19 14:39 Dose: 100 mg Ampicillin Sodium/Sulbactam (Sodium 3 gm/ Sodium Chloride) 100 mls @ 200 mls/ hr IV Q6H [facility] Last Admin: 01/05/19 15:47 Dose: 200 mls/hr Aztreonam/Dextrose 1 gm/ (Premix) 50 mls @ 100 mls/hr IV Q8H [facility] Last Admin: 01/05/19 10:36 Dose: 100 mls/hr Dextrose/Lactated Ringer's (Dextrose 5%-Lactated Ringers) 1,000 mls @ 100 mls/ hr IV ASDIRECTED [facility] Last Admin: 01/05/19 09:53 Dose: 100 mls/hr Naloxone HCl (Narcan) 0.1 mg IV ASDIRECTED PRN PRN Reason: decreased respiratory rate Ondansetron HCl (Zofran) 4 mg IVPUSH Q4H PRN PRN Reason: Nausea Last Admin: 01/05/19 12:56 Dose: 4 mg Oxycodone/Acetaminophen (Percocet 325-10 Mg) 1 - 2 tab PO Q4H PRN PRN Reason: Abdominal Pain Pantoprazole Sodium (Protonix Iv) 40 mg IV Q24H [facility] Last Admin: 01/04/19 16:54 Dose: 40 mg Discontinued Medications Acetaminophen (Tylenol Extra Strength) 1,000 mg PO Q6H [facility] Last Admin: 01/02/19 05:18 Dose: 1,000 mg Acetaminophen (Tylenol Extra Strength) 1,000 mg PO Q6H [facility] Last Admin: 01/05/19 11:13 Dose: 1,000 mg Bisacodyl (Dulcolax) 10 mg PO BID [facility] Last Admin: 01/05/19 08:46 Dose: 10 mg Bupivacaine HCl (Marcaine 0.5%) Confirm Administered Dose 50 ml .ROUTE .STK-MED ONE Stop: 01/04/19 06:38 Last Admin: 01/04/19 07:31 Dose: 17.5 ml Ropivacaine 55 ml/Dexamethasone 8 mg/Epinephrine HCl 0.4 mg/ Sodium Chloride 22.6 ml 0 ml NERVRT ASDIRECTED [facility] Last Admin: 01/02/19 09:50 Dose: 80 syringe Ropivacaine 55 ml/Dexamethasone 8 mg/Epinephrine HCl 0.4 mg/ Sodium Chloride 22.6 ml 0 ml NERVRT ASDIRECTED [facility] Last Admin: 01/04/19 07:25 Dose: 80 syringe Dexamethasone (Dexamethasone) Confirm Administered Dose 4 mg .ROUTE .STK-MED ONE Stop: 01/02/19 07:08 Fentanyl (Sublimaze) Confirm Administered Dose 250 mcg .ROUTE .STK-MED ONE Stop: 01/02/19 07:07 Fentanyl (Sublimaze) Confirm Administered Dose 250 mcg .ROUTE .STK-MED ONE Stop: 01/02/19 08:12 Fentanyl (Sublimaze) 50 mcg IV ONETIME ONE Stop: 01/02/19 09:46 Last Admin: 01/02/19 09:48 Dose: 50 mcg Fentanyl (Sublimaze) 50 mcg IV ONETIME ONE Stop: 01/02/19 10:01 Last Admin: 01/02/19 09:59 Dose: 50 mcg Fentanyl (Sublimaze) Confirm Administered Dose 100 mcg .ROUTE .STK-MED ONE Stop: 01/04/19 06:53 Glycopyrrolate (Robinul) Confirm Administered Dose 1 mg .ROUTE .STK-MED ONE Stop: 01/02/19 07:08 Hydromorphone HCl (Dilaudid Emergency Services Director 15 Mg In Ns 30 Ml) 0 mg IV ASDIRECTED PRN; Protocol PRN Reason: [employer] PAIN CONTROL Last Admin: 01/02/19 16:15 Dose: 15 mg Hydromorphone HCl (Dilaudid Emergency Services Director 15 Mg In Ns 30 Ml) 15 mg IV ASDIRECTED PRN; Protocol PRN Reason: Pain Last Admin: 01/05/19 01:26 Dose: 15 mg Hydroxyzine HCl (Vistaril) 50 mg IM ONETIME ONE Stop: 01/02/19 18:03 Last Admin: 01/02/19 18:49 Dose: 50 mg Lactated Ringer's (Ringers, Lactated) 1,000 mls @ 333.333 mls/hr IV ONETIME ONE Stop: 01/01/19 18:59 Last Admin: 01/01/19 17:00 Dose: 333.333 mls/hr Dextrose/Lactated Ringer's (Dextrose 5%-Lactated Ringers) 1,000 mls @ 125 mls/ hr IV ASDIRECTED [facility] Last Admin: 01/02/19 10:00 Dose: 125 mls/hr Ketamine HCl 50 mg/ Sodium (Chloride) 50 mls @ 26.7 mls/hr IV ASDIRECTED [facility] Linezolid (Zyvox) Confirm Administered Dose 300 mls @ as directed .ROUTE .STK- MED ONE Stop: 01/02/19 06:48 Sodium Chloride (Normal Saline) Confirm Administered Dose 10 mls @ as directed .ROUTE .STK-MED ONE Stop: 01/02/19 08:12 Lactated Ringer's (Ringers, Lactated) Confirm Administered Dose 1,000 mls @ as directed .ROUTE .STK-MED ONE Stop: 01/02/19 08:13 Dextrose/Lactated Ringer's (Dextrose 5%-Lactated Ringers) 1,000 mls @ 175 mls/ hr IV ASDIRECTED [facility] Last Admin: 01/03/19 06:45 Dose: 175 mls/hr Acetaminophen 1,000 mg/ Premix 100 mls @ 400 mls/hr IV ONETIME ONE Stop: 01/02/19 12:14 Last Admin: 01/02/19 12:09 Dose: 400 mls/hr Ketamine HCl (Ketalar) 45 mg IV ASDIRECTED [facility] Lidocaine/Epinephrine (Xylocaine 1% With Epinephrine 1:100,000) Confirm Administered Dose 50 ml .ROUTE .STK-MED ONE Stop: 01/04/19 06:38 Last Admin: 01/04/19 07:31 Dose: 17.5 ml Meperidine HCl (Demerol) 100 mg IM ONETIME ONE Stop: 01/02/19 18:03 Last Admin: 01/02/19 18:49 Dose: 100 mg Meropenem (Merrem) Confirm Administered Dose 500 mg .ROUTE .STK-MED ONE Stop: 01/02/19 06:48 Last Admin: 01/02/19 08:00 Dose: 500 mg Meropenem (Merrem) Confirm Administered Dose 500 mg .ROUTE .STK-MED ONE Stop: 01/02/19 08:02 Last Admin: 01/02/19 09:00 Dose: 500 mg Meropenem (Merrem) Confirm Administered Dose 500 mg .ROUTE .STK-MED ONE Stop: 01/04/19 06:38 Last Admin: 01/04/19 07:39 Dose: 500 mg Midazolam HCl (Versed 1 Mg/Ml) Confirm Administered Dose 2 mg .ROUTE .STK-MED ONE Stop: 01/04/19 06:53 Neostigmine Methylsulfate (Neostigmine) Confirm Administered Dose 5 mg .ROUTE .STK-MED ONE Stop: 01/02/19 07:08 Non-Formulary Medication (Tap Block, Pharmacy To Dose) 0 ml NERVRT ONETIME ONE Stop: 01/04/19 07:31 Last Admin: 01/04/19 08:38 Dose: Not Given Ondansetron HCl (Zofran) Confirm Administered Dose 4 mg .ROUTE .STK-MED ONE Stop: 01/02/19 07:08 Propofol (Diprivan 20 Ml) Confirm Administered Dose 200 mg .ROUTE .STK-MED ONE Stop: 01/02/19 07:08 Propofol (Diprivan 20 Ml) Confirm Administered Dose 200 mg .ROUTE .STK-MED ONE Stop: 01/04/19 06:53 Propofol (Diprivan 20 Ml) Confirm Administered Dose 200 mg .ROUTE .STK-MED ONE Stop: 01/04/19 07:31 Rocuronium [place] (Zemuron) Confirm Administered Dose 50 mg .ROUTE .STK-MED ONE Stop: 01/02/19 07:08 Rocuronium [place] (Zemuron) Confirm Administered Dose 50 mg .ROUTE .STK-MED ONE Stop: 01/02/19 08:06 Succinylcholine Chloride (Quelicin) Confirm Administered Dose 200 mg .ROUTE .STK -MED ONE Stop: 01/02/19 07:08 - My Orders Last 24 Hours: Active Orders 24 hr Category Date Time Status Communication Order [RC] ASDIRECTED Care 01/05/19 08:07 Active May Shower [RC] ASDIRECTED Care 01/05/19 08:08 Active Full Liquid Diet [DIET] Diet 01/05/19 Lunch Ordered Foot wo Cont Lt [MR] Routine Exams 01/05/19 14:45 Ordered Foot wo Cont Lt [MR] Routine Exams 01/06/19 09:00 Stop Req Acetaminophen/oxyCODONE [Percocet 325-10 MG] Med 01/05/19 16:00 Active 1 - 2 tab PO Q4H PRN Allopurinol [Zyloprim] Med 01/05/19 14:30 Active 300 mg PO DAILY Colchicine [Colcrys] Med 01/05/19 21:00 Active 0.6 mg PO BID Medication Orders Allopurinol (Zyloprim) 300 mg PO DAILY [facility] Last Admin: 01/05/19 15:39 Dose: 300 mg Colchicine (Colcrys) 0.6 mg PO BID [facility] Cyclobenzaprine HCl (Flexeril) 10 mg PO Q6H PRN PRN Reason: Muscle Spasms Last Admin: 01/02/19 17:10 Dose: 10 mg Admin: 01/02/19 10:54 Dose: 10 mg Diphenhydramine HCl (Benadryl) 50 mg IVPUSH Q4H PRN PRN Reason: Itching Last Admin: 01/03/19 17:12 Dose: 50 mg Hydroxyzine HCl (Vistaril) 100 mg IM Q4H PRN PRN Reason: Pain Last Admin: 01/03/19 14:39 Dose: 100 mg Admin: 01/02/19 15:55 Dose: 100 mg Admin: 01/02/19 09:50 Dose: 100 mg Admin: 01/02/19 05:30 Dose: 100 mg Ampicillin Sodium/Sulbactam (Sodium 3 gm/ Sodium Chloride) 100 mls @ 200 mls/ hr IV Q6H [facility] Last Admin: 01/05/19 15:47 Dose: 200 mls/hr Admin: 01/05/19 09:53 Dose: 200 mls/hr Admin: 01/05/19 05:03 Dose: 200 mls/hr Admin: 01/04/19 22:16 Dose: 200 mls/hr Admin: 01/04/19 15:49 Dose: 200 mls/hr Admin: 01/04/19 10:54 Dose: 200 mls/hr Admin: 01/04/19 03:19 Dose: 200 mls/hr Admin: 01/03/19 22:18 Dose: 200 mls/hr Admin: 01/03/19 15:30 Dose: 200 mls/hr Admin: 01/03/19 10:34 Dose: 200 mls/hr Admin: 01/03/19 03:04 Dose: 200 mls/hr Admin: 01/02/19 22:05 Dose: 200 mls/hr Admin: 01/02/19 15:55 Dose: 200 mls/hr Admin: 01/02/19 10:51 Dose: 200 mls/hr Admin: 01/02/19 04:09 Dose: 200 mls/hr Admin: 01/01/19 22:38 Dose: 200 mls/hr Admin: 01/01/19 17:33 Dose: 200 mls/hr Aztreonam/Dextrose 1 gm/ (Premix) 50 mls @ 100 mls/hr IV Q8H [facility] Last Admin: 01/05/19 10:36 Dose: 100 mls/hr Admin: 01/05/19 01:28 Dose: 100 mls/hr Admin: 01/04/19 17:37 Dose: 100 mls/hr Admin: 01/04/19 10:12 Dose: 100 mls/hr Admin: 01/04/19 02:46 Dose: 100 mls/hr Admin: 01/03/19 17:19 Dose: 100 mls/hr Admin: 01/03/19 09:08 Dose: 100 mls/hr Admin: 01/03/19 02:35 Dose: 100 mls/hr Admin: 01/02/19 17:35 Dose: 100 mls/hr Admin: 01/02/19 11:25 Dose: 100 mls/hr Admin: 01/02/19 02:09 Dose: 100 mls/hr Admin: 01/01/19 18:11 Dose: 100 mls/hr Dextrose/Lactated Ringer's (Dextrose 5%-Lactated Ringers) 1,000 mls @ 100 mls/ hr IV ASDIRECTED [facility] Last Admin: 01/05/19 09:53 Dose: 100 mls/hr Infusion: 01/05/19 09:03 Dose: 100 mls/hr Admin: 01/04/19 23:03 Dose: 100 mls/hr Infusion: 01/04/19 20:17 Dose: 100 mls/hr Admin: 01/04/19 10:17 Dose: 100 mls/hr Infusion: 01/04/19 10:17 Dose: 100 mls/hr Admin: 01/04/19 05:27 Dose: 100 mls/hr Infusion: 01/04/19 03:44 Dose: 100 mls/hr Admin: 01/03/19 17:44 Dose: 100 mls/hr Naloxone HCl (Narcan) 0.1 mg IV ASDIRECTED PRN PRN Reason: decreased respiratory rate Ondansetron HCl (Zofran) 4 mg IVPUSH Q4H PRN PRN Reason: Nausea Last Admin: 01/05/19 12:56 Dose: 4 mg Admin: 01/02/19 11:35 Dose: 4 mg Oxycodone/Acetaminophen (Percocet 325-10 Mg) 1 - 2 tab PO Q4H PRN PRN Reason: Abdominal Pain Pantoprazole Sodium (Protonix Iv) 40 mg IV Q24H FABIO Last Admin: 01/04/19 16:54 Dose: 40 mg Admin: 01/03/19 17:19 Dose: 40 mg Admin: 01/02/19 17:11 Dose: 40 mg Admin: 01/01/19 17:41 Dose: 40 mg - Assessment Assessment (Free Text/Narrative):: Date of surgery: 01/02/19 Renny Dickens MD - Plan Plan (Free Text/Narrative):: Decrease IV to 100 mls per hour Scheduled DPC with IV, Local, Tap block on 01/04/19 Renny Dickens MD [facility] Chloe Burleson
[2019-01-03] MEDS: hydrOXYzine HCl 100 MG/2 ML SDV IM PRN (14:39)
[2019-01-03] MEDS ORDERED: diphenhydrAMINE 50 MG/ML SDV IVPUSH PRN (17:03)
[2019-01-03] MEDS: Pantoprazole 40 MG Vial IV SCH (17:19)
[2019-01-04] MEDS: Aztreonam/Dextrose-Water 1 GM in Premix Bag 1 BAG IV SCH ×3 (02:46→17:37)
[2019-01-04] MEDS: Ampicillin/Sulbactam Na 3 GM in Sodium Chloride 0.9% 100 ML IV SCH ×4 (03:19→22:16)
[2019-01-04] MEDS: HYDROmorphone/Normal Saline 15 MG/30 ML PCA IV PRN ×2 (03:48→12:11)
[2019-01-04] MEDS: Dextrose 5%-Lactated Ringers 1,000 ML IV SCH ×3 (05:27→23:03)
[2019-01-04] MEDS: Acetaminophen 500 MG Tab PO SCH ×5 (05:59→23:03)
[2019-01-04] MEDS ORDERED: Meropenem 500 MG SDV ONE (06:37)
[2019-01-04] MEDS ORDERED: Lidocaine 1% with EPINEPHrine 1:100,000 50 ML MDV ONE (06:37)
[2019-01-04] MEDS ORDERED: Bupivacaine 0.5% 50 ML MDV ONE (06:37)
[2019-01-04] MEDS ORDERED: fentaNYL 100 MCG/2 ML SDV ONE (06:52)
[2019-01-04] MEDS ORDERED: Propofol 200 MG/20 ML SDV ONE ×2 (06:52→07:30)
[2019-01-04] MEDS ORDERED: Midazolam 1 MG/ML 2 ML SDV ONE (06:52)
[2019-01-04] MEDS ORDERED: Tap Block 1 ML BAG NERVRT ONE (07:30)
[2019-01-04] MEDS ORDERED: Ropivacaine 55 ML, Dexamethasone 8 MG, EPINEPHrine 0.4 MG, Sodium Chloride 0.9% 22.6 ML NERVRT SCH ×4 (08:00)
--- NOTE | 2019-01-04 09:03 | PCM.SURGPN ---
- General Info Date of Service: 01/04/19 Date of Surgery/Procedure: 01/02/19 POD#: 2 Functional Status: Reports: Other (Curt is postoperative day #2. Today, he will have delayed primary closure and an [id number] block completed. His pain is well controlled and dressings are dry. Vital signs are stable. He has been up and ambulating. He has not had a bowel movement yet and he continues to consume ice chips.) - Review of Systems General: Reports: No Symptoms HEENT: Reports: No Symptoms Pulmonary: Reports: No Symptoms Cardiovascular: Reports: No Symptoms Gastrointestinal: Reports: Abdominal Pain Genitourinary: Reports: No Symptoms Musculoskeletal: Reports: No Symptoms Skin: Reports: No Symptoms Neurological: Reports: No Symptoms Psychiatric: Reports: No Symptoms - Patient Data Vitals - Most Recent: Last Vital Signs Temp 37.7 C 01/04/19 08:28 Pulse 92 01/04/19 08:42 Resp 14 01/04/19 08:42 BP 137/82 01/04/19 08:42 Pulse Ox 93 L 01/04/19 08:42 Weight - Most Recent: 111.13 kg I&O - Last 24 Hours: Intake & Output 01/03/19 01/04/19 01/04/19 22:59 06:59 14:59 Intake Total 1650 1113 75 Output Total 825 Balance 1650 288 75 Boubacar Results Last 24 Hrs: Microbiology 01/02/19 07:50 Gram Stain - Final Abdominal Fluid - Drainage Wound Culture - Preliminary Anaerobic Culture - Preliminary NO GROWTH AFTER 1 DAY Med Orders - Current: Current Medications Acetaminophen (Tylenol Extra Strength) 1,000 mg PO Q6H [facility] Last Admin: 01/04/19 05:59 Dose: Not Given Ropivacaine 55 ml/Dexamethasone 8 mg/Epinephrine HCl 0.4 mg/ Sodium Chloride 22.6 ml 0 ml NERVRT ASDIRECTED [facility] Last Admin: 01/04/19 07:25 Dose: 80 syringe Cyclobenzaprine HCl (Flexeril) 10 mg PO Q6H PRN PRN Reason: Muscle Spasms Last Admin: 01/02/19 17:10 Dose: 10 mg Diphenhydramine HCl (Benadryl) 50 mg IVPUSH Q4H PRN PRN Reason: Itching Last Admin: 01/03/19 17:12 Dose: 50 mg Hydromorphone HCl (Dilaudid Global Transportation Manager 15 Mg In Ns 30 Ml) 15 mg IV ASDIRECTED PRN; Protocol PRN Reason: Pain Last Admin: 01/04/19 03:48 Dose: 15 mg Hydroxyzine HCl (Vistaril) 100 mg IM Q4H PRN PRN Reason: Pain Last Admin: 01/03/19 14:39 Dose: 100 mg Ampicillin Sodium/Sulbactam (Sodium 3 gm/ Sodium Chloride) 100 mls @ 200 mls/ hr IV Q6H [facility] Last Admin: 01/04/19 03:19 Dose: 200 mls/hr Aztreonam/Dextrose 1 gm/ (Premix) 50 mls @ 100 mls/hr IV Q8H [facility] Last Admin: 01/04/19 02:46 Dose: 100 mls/hr Dextrose/Lactated Ringer's (Dextrose 5%-Lactated Ringers) 1,000 mls @ 100 mls/ hr IV ASDIRECTED [facility] Last Admin: 01/04/19 05:27 Dose: 100 mls/hr Naloxone HCl (Narcan) 0.1 mg IV ASDIRECTED PRN PRN Reason: decreased respiratory rate Ondansetron HCl (Zofran) 4 mg IVPUSH Q4H PRN PRN Reason: Nausea Last Admin: 01/02/19 11:35 Dose: 4 mg Pantoprazole Sodium (Protonix Iv) 40 mg IV Q24H [facility] Last Admin: 01/03/19 17:19 Dose: 40 mg Discontinued Medications Acetaminophen (Tylenol Extra Strength) 1,000 mg PO Q6H [facility] Last Admin: 01/02/19 05:18 Dose: 1,000 mg Bupivacaine HCl (Marcaine 0.5%) Confirm Administered Dose 50 ml .ROUTE .STK-MED ONE Stop: 01/04/19 06:38 Last Admin: 01/04/19 07:31 Dose: 17.5 ml Ropivacaine 55 ml/Dexamethasone 8 mg/Epinephrine HCl 0.4 mg/ Sodium Chloride 22.6 ml 0 ml NERVRT ASDIRECTED [facility] Last Admin: 01/02/19 09:50 Dose: 80 syringe Dexamethasone (Dexamethasone) Confirm Administered Dose 4 mg .ROUTE .STK-MED ONE Stop: 01/02/19 07:08 Fentanyl (Sublimaze) Confirm Administered Dose 250 mcg .ROUTE .STK-MED ONE Stop: 01/02/19 07:07 Fentanyl (Sublimaze) Confirm Administered Dose 250 mcg .ROUTE .STK-MED ONE Stop: 01/02/19 08:12 Fentanyl (Sublimaze) 50 mcg IV ONETIME ONE Stop: 01/02/19 09:46 Last Admin: 01/02/19 09:48 Dose: 50 mcg Fentanyl (Sublimaze) 50 mcg IV ONETIME ONE Stop: 01/02/19 10:01 Last Admin: 01/02/19 09:59 Dose: 50 mcg Fentanyl (Sublimaze) Confirm Administered Dose 100 mcg .ROUTE .STK-MED ONE Stop: 01/04/19 06:53 Glycopyrrolate (Robinul) Confirm Administered Dose 1 mg .ROUTE .STK-MED ONE Stop: 01/02/19 07:08 Hydromorphone HCl (Dilaudid Global Transportation Manager 15 Mg In Ns 30 Ml) 0 mg IV ASDIRECTED PRN; Protocol PRN Reason: RECONDITIONER PAIN CONTROL Last Admin: 01/02/19 16:15 Dose: 15 mg Hydroxyzine HCl (Vistaril) 50 mg IM ONETIME ONE Stop: 01/02/19 18:03 Last Admin: 01/02/19 18:49 Dose: 50 mg Lactated Ringer's (Ringers, Lactated) 1,000 mls @ 333.333 mls/hr IV ONETIME ONE Stop: 01/01/19 18:59 Last Admin: 01/01/19 17:00 Dose: 333.333 mls/hr Dextrose/Lactated Ringer's (Dextrose 5%-Lactated Ringers) 1,000 mls @ 125 mls/ hr IV ASDIRECTED [facility] Last Admin: 01/02/19 10:00 Dose: 125 mls/hr Ketamine HCl 50 mg/ Sodium (Chloride) 50 mls @ 26.7 mls/hr IV ASDIRECTED [facility] Linezolid (Zyvox) Confirm Administered Dose 300 mls @ as directed .ROUTE .ST- MED ONE Stop: 01/02/19 06:48 Sodium Chloride (Normal Saline) Confirm Administered Dose 10 mls @ as directed .ROUTE .STK-MED ONE Stop: 01/02/19 08:12 Lactated Ringer's (Ringers, Lactated) Confirm Administered Dose 1,000 mls @ as directed .ROUTE .STK-MED ONE Stop: 01/02/19 08:13 Dextrose/Lactated Ringer's (Dextrose 5%-Lactated Ringers) 1,000 mls @ 175 mls/ hr IV ASDIRECTED [facility] Last Admin: 01/03/19 06:45 Dose: 175 mls/hr Acetaminophen 1,000 mg/ Premix 100 mls @ 400 mls/hr IV ONETIME ONE Stop: 01/02/19 12:14 Last Admin: 01/02/19 12:09 Dose: 400 mls/hr Ketamine HCl (Ketalar) 45 mg IV ASDIRECTED [facility] Lidocaine/Epinephrine (Xylocaine 1% With Epinephrine 1:100,000) Confirm Administered Dose 50 ml .ROUTE .STK-MED ONE Stop: 01/04/19 06:38 Last Admin: 01/04/19 07:31 Dose: 17.5 ml Meperidine HCl (Demerol) 100 mg IM ONETIME ONE Stop: 01/02/19 18:03 Last Admin: 01/02/19 18:49 Dose: 100 mg Meropenem (Merrem) Confirm Administered Dose 500 mg .ROUTE .STK-MED ONE Stop: 01/02/19 06:48 Last Admin: 01/02/19 08:00 Dose: 500 mg Meropenem (Merrem) Confirm Administered Dose 500 mg .ROUTE .STK-MED ONE Stop: 01/02/19 08:02 Last Admin: 01/02/19 09:00 Dose: 500 mg Meropenem (Merrem) Confirm Administered Dose 500 mg .ROUTE .STK-MED ONE Stop: 01/04/19 06:38 Last Admin: 01/04/19 07:39 Dose: 500 mg Midazolam HCl (Versed 1 Mg/Ml) Confirm Administered Dose 2 mg .ROUTE .STK-MED ONE Stop: 01/04/19 06:53 Neostigmine Methylsulfate (Neostigmine) Confirm Administered Dose 5 mg .ROUTE .STK-MED ONE Stop: 01/02/19 07:08 Non-Formulary Medication (Tap Block, Pharmacy To Dose) 0 ml NERVRT ONETIME ONE Stop: 01/04/19 07:31 Last Admin: 01/04/19 08:38 Dose: Not Given Ondansetron HCl (Zofran) Confirm Administered Dose 4 mg .ROUTE .STK-MED ONE Stop: 01/02/19 07:08 Propofol (Diprivan 20 Ml) Confirm Administered Dose 200 mg .ROUTE .STK-MED ONE Stop: 01/02/19 07:08 Propofol (Diprivan 20 Ml) Confirm Administered Dose 200 mg .ROUTE .STK-MED ONE Stop: 01/04/19 06:53 Propofol (Diprivan 20 Ml) Confirm Administered Dose 200 mg .ROUTE .STK-MED ONE Stop: 01/04/19 07:31 Rocuronium [place] (Zemuron) Confirm Administered Dose 50 mg .ROUTE .STK-MED ONE Stop: 01/02/19 07:08 Rocuronium [place] (Zemuron) Confirm Administered Dose 50 mg .ROUTE .STK-MED ONE Stop: 01/02/19 08:06 Succinylcholine Chloride (Quelicin) Confirm Administered Dose 200 mg .ROUTE .STK -MED ONE Stop: 01/02/19 07:08 - Exam Wound/Incisions: Dressing Dry and Intact General: Alert, Oriented Neck: Supple Lungs: Clear to Auscultation, Normal Respiratory Effort Cardiovascular: Regular Rate, Regular Rhythm GI/Abdominal Exam: No: Distended Extremities: Normal Inspection Skin: Warm Neurological: No New Focal Deficit Psy/Mental Status: Alert, Normal Affect - Problem List Review Problem List Initiated/Reviewed/Updated: Yes - My Orders Last 24 Hours: Active Orders 24 hr Category Date Time Status Communication Order [RC] ROUTINE Care 01/04/19 08:54 Active DC Brennan Catheter [Urinary Catheter Removal] [RC] Per Care 01/04/19 08:56 Active Unit Routine Drain Management [RC] ASDIRECTED Care 01/04/19 08:55 Active Verify Patient Consent Obtain [RC] ASDIRECTED Care 01/04/19 07:30 Active Ropivacaine [Naropin 0.5%] 55 ml Med 01/04/19 08:00 Active Dexamethasone 8 mg EPINEPHrine [Adrenalin] 0.4 mg Sodium Chloride 0.9% [Normal Saline] 22.6 ml NERVRT ASDIRECTED diphenhydrAMINE [Benadryl] Med 01/03/19 17:03 Active 50 mg IVPUSH Q4H PRN Oral Care [OM.PC] BID Oth 01/03/19 11:30 Ordered Medication Orders Acetaminophen (Tylenol Extra Strength) 1,000 mg PO Q6H [facility] Last Admin: 01/04/19 05:59 Dose: Not Given Admin: 01/04/19 00:00 Dose: 1,000 mg Admin: 01/03/19 17:20 Dose: 1,000 mg Admin: 01/03/19 11:50 Dose: 1,000 mg Admin: 01/03/19 05:35 Dose: 1,000 mg Admin: 01/02/19 23:47 Dose: 1,000 mg Admin: 01/02/19 17:10 Dose: 1,000 mg Ropivacaine 55 ml/Dexamethasone 8 mg/Epinephrine HCl 0.4 mg/ Sodium Chloride 22.6 ml 0 ml NERVRT ASDIRECTED [facility] Last Admin: 01/04/19 07:25 Dose: 80 syringe Cyclobenzaprine HCl (Flexeril) 10 mg PO Q6H PRN PRN Reason: Muscle Spasms Last Admin: 01/02/19 17:10 Dose: 10 mg Admin: 01/02/19 10:54 Dose: 10 mg Diphenhydramine HCl (Benadryl) 50 mg IVPUSH Q4H PRN PRN Reason: Itching Last Admin: 01/03/19 17:12 Dose: 50 mg Hydromorphone HCl (Dilaudid Global Transportation Manager 15 Mg In Ns 30 Ml) 15 mg IV ASDIRECTED PRN; Protocol PRN Reason: Pain Last Admin: 01/04/19 03:48 Dose: 15 mg Admin: 01/03/19 15:29 Dose: 15 mg Admin: 01/03/19 05:33 Dose: 15 mg Admin: 01/02/19 18:54 Dose: 15 mg Hydroxyzine HCl (Vistaril) 100 mg IM Q4H PRN PRN Reason: Pain Last Admin: 01/03/19 14:39 Dose: 100 mg Admin: 01/02/19 15:55 Dose: 100 mg Admin: 01/02/19 09:50 Dose: 100 mg Admin: 01/02/19 05:30 Dose: 100 mg Ampicillin Sodium/Sulbactam (Sodium 3 gm/ Sodium Chloride) 100 mls @ 200 mls/ hr IV Q6H [facility] Last Admin: 01/04/19 03:19 Dose: 200 mls/hr Admin: 01/03/19 22:18 Dose: 200 mls/hr Admin: 01/03/19 15:30 Dose: 200 mls/hr Admin: 01/03/19 10:34 Dose: 200 mls/hr Admin: 01/03/19 03:04 Dose: 200 mls/hr Admin: 01/02/19 22:05 Dose: 200 mls/hr Admin: 01/02/19 15:55 Dose: 200 mls/hr Admin: 01/02/19 10:51 Dose: 200 mls/hr Admin: 01/02/19 04:09 Dose: 200 mls/hr Admin: 01/01/19 22:38 Dose: 200 mls/hr Admin: 01/01/19 17:33 Dose: 200 mls/hr Aztreonam/Dextrose 1 gm/ (Premix) 50 mls @ 100 mls/hr IV Q8H [facility] Last Admin: 01/04/19 02:46 Dose: 100 mls/hr Admin: 01/03/19 17:19 Dose: 100 mls/hr Admin: 01/03/19 09:08 Dose: 100 mls/hr Admin: 01/03/19 02:35 Dose: 100 mls/hr Admin: 01/02/19 17:35 Dose: 100 mls/hr Admin: 01/02/19 11:25 Dose: 100 mls/hr Admin: 01/02/19 02:09 Dose: 100 mls/hr Admin: 01/01/19 18:11 Dose: 100 mls/hr Dextrose/Lactated Ringer's (Dextrose 5%-Lactated Ringers) 1,000 mls @ 100 mls/ hr IV ASDIRECTED [facility] Last Admin: 01/04/19 05:27 Dose: 100 mls/hr Infusion: 01/04/19 03:44 Dose: 100 mls/hr Admin: 01/03/19 17:44 Dose: 100 mls/hr Naloxone HCl (Narcan) 0.1 mg IV ASDIRECTED PRN PRN Reason: decreased respiratory rate Ondansetron HCl (Zofran) 4 mg IVPUSH Q4H PRN PRN Reason: Nausea Last Admin: 01/02/19 11:35 Dose: 4 mg Pantoprazole Sodium (Protonix Iv) 40 mg IV Q24H [facility] Last Admin: 01/03/19 17:19 Dose: 40 mg Admin: 01/02/19 17:11 Dose: 40 mg Admin: 01/01/19 17:41 Dose: 40 mg - Assessment Assessment (Free Text/Narrative):: 1. Exploratory Laparotomy with drainage multifocal intra-abdominal abscess, right colectomy, small bowel resection, mobilization omentum into pelvis. Date of surgery 01/02/19. Surgeon, Renny Dickens MD a. Repair multifocal intra abdominal abscess with focal deserosalization b. Repair necrosis cecum distal small bowel 2. Delayed primary wound closure 01/04/19. Surgeon, Renny Dickens MD 3. Pain, left first metatarsophalangeal joint (See consult note) - Plan Plan (Free Text/Narrative):: 1. Delayed primary closure on 01/04/19 and [id number] block by Renny Dickens MD. 2. Ice chip diet 3. Recheck in the AM or PRN
[2019-01-04] MEDS: Bisacodyl 5 MG Tab PO SCH ×2 (10:21→22:15)
[2019-01-04] MEDS: Pantoprazole 40 MG Vial IV SCH (16:54)
[2019-01-05] MEDS: HYDROmorphone/Normal Saline 15 MG/30 ML PCA IV PRN (01:26)
[2019-01-05] MEDS: Aztreonam/Dextrose-Water 1 GM in Premix Bag 1 BAG IV SCH ×3 (01:28→17:22)
[2019-01-05] MEDS: Ampicillin/Sulbactam Na 3 GM in Sodium Chloride 0.9% 100 ML IV SCH ×4 (05:03→21:18)
[2019-01-05] MEDS: Acetaminophen 500 MG Tab PO SCH ×2 (05:03→11:13)
[2019-01-05] MEDS: Bisacodyl 5 MG Tab PO SCH (08:46)
--- NOTE | 2019-01-05 08:58 | PCM.PN ---
- General Info Date of Service: 01/05/19 Admission Dx/Problem (Free Text): Curt Blanco is postoperative day #3. He has been up and ambulating. He indicates his pain is controlled but he cannot perform fast movements without pain. His dressings are intact with mild shadowing of the Aquacel bandage. Vital signs are stable. He did successfully have a loose bowel movement this AM. His abdominal fluid drainage micrology came back showing a culture of Escherichia coli and the antibiotic regime he is currently on is susceptible. Functional Status: Reports: Tolerating Diet - Review of Systems General: Reports: No Symptoms HEENT: Reports: No Symptoms Pulmonary: Reports: No Symptoms Cardiovascular: Reports: No Symptoms Gastrointestinal: Reports: Abdominal Pain, Flatus. Denies: Difficulty Swallowing, Nausea Genitourinary: Reports: No Symptoms Musculoskeletal: Reports: No Symptoms Skin: Reports: No Symptoms Neurological: Reports: No Symptoms - Patient Data Vitals - Most Recent: Last Vital Signs Temp 36.3 C 01/05/19 07:14 Pulse 77 01/05/19 07:14 Resp 14 01/05/19 07:14 BP 123/66 01/05/19 07:14 Pulse Ox 99 01/05/19 07:40 Weight - Most Recent: 111.13 kg I&O - Last 24 Hours: Intake & Output 01/04/19 01/05/19 01/05/19 22:59 06:59 14:59 Intake Total 1390 1313 Output Total 2625 1450 Balance -1235 -137 Lab Results Last 24 Hours: Laboratory Results - last 24 hr 01/02/19 Range/Units 16:00 Ur Uric Acid 34.7 (Not Estab.) mg/dL Ur Uric Acid 24 Hr 798.1 H (250.0-750.0) mg/24 hr Boubacar Results Last 24 Hours: Microbiology 01/02/19 07:50 Gram Stain - Final Abdominal Fluid - Drainage Wound Culture - Final Escherichia Coli Anaerobic Culture - Preliminary NO GROWTH AFTER 1 DAY Med Orders - Current: Current Medications Acetaminophen (Tylenol Extra Strength) 1,000 mg PO Q6H [facility] Last Admin: 01/05/19 05:03 Dose: 1,000 mg Bisacodyl (Dulcolax) 10 mg PO BID [facility] Last Admin: 01/05/19 08:46 Dose: 10 mg Cyclobenzaprine HCl (Flexeril) 10 mg PO Q6H PRN PRN Reason: Muscle Spasms Last Admin: 01/02/19 17:10 Dose: 10 mg Diphenhydramine HCl (Benadryl) 50 mg IVPUSH Q4H PRN PRN Reason: Itching Last Admin: 01/03/19 17:12 Dose: 50 mg Hydromorphone HCl (Dilaudid Stock Sheets Cleaner Inspector 15 Mg In Ns 30 Ml) 15 mg IV ASDIRECTED PRN; Protocol PRN Reason: Pain Last Admin: 01/05/19 01:26 Dose: 15 mg Hydroxyzine HCl (Vistaril) 100 mg IM Q4H PRN PRN Reason: Pain Last Admin: 01/03/19 14:39 Dose: 100 mg Ampicillin Sodium/Sulbactam (Sodium 3 gm/ Sodium Chloride) 100 mls @ 200 mls/ hr IV Q6H [facility] Last Admin: 01/05/19 05:03 Dose: 200 mls/hr Aztreonam/Dextrose 1 gm/ (Premix) 50 mls @ 100 mls/hr IV Q8H [facility] Last Admin: 01/05/19 01:28 Dose: 100 mls/hr Dextrose/Lactated Ringer's (Dextrose 5%-Lactated Ringers) 1,000 mls @ 100 mls/ hr IV ASDIRECTED [facility] Last Admin: 01/04/19 23:03 Dose: 100 mls/hr Naloxone HCl (Narcan) 0.1 mg IV ASDIRECTED PRN PRN Reason: decreased respiratory rate Ondansetron HCl (Zofran) 4 mg IVPUSH Q4H PRN PRN Reason: Nausea Last Admin: 01/02/19 11:35 Dose: 4 mg Pantoprazole Sodium (Protonix Iv) 40 mg IV Q24H [facility] Last Admin: 01/04/19 16:54 Dose: 40 mg Discontinued Medications Acetaminophen (Tylenol Extra Strength) 1,000 mg PO Q6H [facility] Last Admin: 01/02/19 05:18 Dose: 1,000 mg Bupivacaine HCl (Marcaine 0.5%) Confirm Administered Dose 50 ml .ROUTE .STK-MED ONE Stop: 01/04/19 06:38 Last Admin: 01/04/19 07:31 Dose: 17.5 ml Ropivacaine 55 ml/Dexamethasone 8 mg/Epinephrine HCl 0.4 mg/ Sodium Chloride 22.6 ml 0 ml NERVRT ASDIRECTED [facility] Last Admin: 01/02/19 09:50 Dose: 80 syringe Ropivacaine 55 ml/Dexamethasone 8 mg/Epinephrine HCl 0.4 mg/ Sodium Chloride 22.6 ml 0 ml NERVRT ASDIRECTED [facility] Last Admin: 01/04/19 07:25 Dose: 80 syringe Dexamethasone (Dexamethasone) Confirm Administered Dose 4 mg .ROUTE .STK-MED ONE Stop: 01/02/19 07:08 Fentanyl (Sublimaze) Confirm Administered Dose 250 mcg .ROUTE .STK-MED ONE Stop: 01/02/19 07:07 Fentanyl (Sublimaze) Confirm Administered Dose 250 mcg .ROUTE .STK-MED ONE Stop: 01/02/19 08:12 Fentanyl (Sublimaze) 50 mcg IV ONETIME ONE Stop: 01/02/19 09:46 Last Admin: 01/02/19 09:48 Dose: 50 mcg Fentanyl (Sublimaze) 50 mcg IV ONETIME ONE Stop: 01/02/19 10:01 Last Admin: 01/02/19 09:59 Dose: 50 mcg Fentanyl (Sublimaze) Confirm Administered Dose 100 mcg .ROUTE .STK-MED ONE Stop: 01/04/19 06:53 Glycopyrrolate (Robinul) Confirm Administered Dose 1 mg .ROUTE .STK-MED ONE Stop: 01/02/19 07:08 Hydromorphone HCl (Dilaudid Stock Sheets Cleaner Inspector 15 Mg In Ns 30 Ml) 0 mg IV ASDIRECTED PRN; Protocol PRN Reason: RECOVERY COLLECTOR PAIN CONTROL Last Admin: 01/02/19 16:15 Dose: 15 mg Hydroxyzine HCl (Vistaril) 50 mg IM ONETIME ONE Stop: 01/02/19 18:03 Last Admin: 01/02/19 18:49 Dose: 50 mg Lactated Ringer's (Ringers, Lactated) 1,000 mls @ 333.333 mls/hr IV ONETIME ONE Stop: 01/01/19 18:59 Last Admin: 01/01/19 17:00 Dose: 333.333 mls/hr Dextrose/Lactated Ringer's (Dextrose 5%-Lactated Ringers) 1,000 mls @ 125 mls/ hr IV ASDIRECTED [facility] Last Admin: 01/02/19 10:00 Dose: 125 mls/hr Ketamine HCl 50 mg/ Sodium (Chloride) 50 mls @ 26.7 mls/hr IV ASDIRECTED [facility] Linezolid (Zyvox) Confirm Administered Dose 300 mls @ as directed .ROUTE .STK- MED ONE Stop: 01/02/19 06:48 Sodium Chloride (Normal Saline) Confirm Administered Dose 10 mls @ as directed .ROUTE .STK-MED ONE Stop: 01/02/19 08:12 Lactated Ringer's (Ringers, Lactated) Confirm Administered Dose 1,000 mls @ as directed .ROUTE .STK-MED ONE Stop: 01/02/19 08:13 Dextrose/Lactated Ringer's (Dextrose 5%-Lactated Ringers) 1,000 mls @ 175 mls/ hr IV ASDIRECTED [facility] Last Admin: 01/03/19 06:45 Dose: 175 mls/hr Acetaminophen 1,000 mg/ Premix 100 mls @ 400 mls/hr IV ONETIME ONE Stop: 01/02/19 12:14 Last Admin: 01/02/19 12:09 Dose: 400 mls/hr Ketamine HCl (Ketalar) 45 mg IV ASDIRECTED [facility] Lidocaine/Epinephrine (Xylocaine 1% With Epinephrine 1:100,000) Confirm Administered Dose 50 ml .ROUTE .[facility]-MED ONE Stop: 01/04/19 06:38 Last Admin: 01/04/19 07:31 Dose: 17.5 ml Meperidine HCl (Demerol) 100 mg IM ONETIME ONE Stop: 01/02/19 18:03 Last Admin: 01/02/19 18:49 Dose: 100 mg Meropenem (Merrem) Confirm Administered Dose 500 mg .ROUTE .[facility]-MED ONE Stop: 01/02/19 06:48 Last Admin: 01/02/19 08:00 Dose: 500 mg Meropenem (Merrem) Confirm Administered Dose 500 mg .ROUTE .[facility]-MED ONE Stop: 01/02/19 08:02 Last Admin: 01/02/19 09:00 Dose: 500 mg Meropenem (Merrem) Confirm Administered Dose 500 mg .ROUTE .STK-MED ONE Stop: 01/04/19 06:38 Last Admin: 01/04/19 07:39 Dose: 500 mg Midazolam HCl (Versed 1 Mg/Ml) Confirm Administered Dose 2 mg .ROUTE .STK-MED ONE Stop: 01/04/19 06:53 Neostigmine Methylsulfate (Neostigmine) Confirm Administered Dose 5 mg .ROUTE .STK-MED ONE Stop: 01/02/19 07:08 Non-Formulary Medication (Tap Block, Pharmacy To Dose) 0 ml NERVRT ONETIME ONE Stop: 01/04/19 07:31 Last Admin: 01/04/19 08:38 Dose: Not Given Ondansetron HCl (Zofran) Confirm Administered Dose 4 mg .ROUTE .STK-MED ONE Stop: 01/02/19 07:08 Propofol (Diprivan 20 Ml) Confirm Administered Dose 200 mg .ROUTE .STK-MED ONE Stop: 01/02/19 07:08 Propofol (Diprivan 20 Ml) Confirm Administered Dose 200 mg .ROUTE .STK-MED ONE Stop: 01/04/19 06:53 Propofol (Diprivan 20 Ml) Confirm Administered Dose 200 mg .ROUTE .STK-MED ONE Stop: 01/04/19 07:31 Rocuronium [place] (Zemuron) Confirm Administered Dose 50 mg .ROUTE .STK-MED ONE Stop: 01/02/19 07:08 Rocuronium [place] (Zemuron) Confirm Administered Dose 50 mg .ROUTE .STK-MED ONE Stop: 01/02/19 08:06 Succinylcholine Chloride (Quelicin) Confirm Administered Dose 200 mg .ROUTE .STK -MED ONE Stop: 01/02/19 07:08 - Exam General: Alert, Oriented Neck: Supple Lungs: Clear to Auscultation, Normal Respiratory Effort Cardiovascular: Regular Rate, Regular Rhythm GI/Abdominal Exam: No Distention Extremities: Normal Inspection, No Pedal Edema Skin: Warm, Dry Wound/Incisions: Healing Well, Other Neurological: No New Focal Deficit Psy/Mental Status: Alert, Normal Affect - Problem List Review Problem List Initiated/Reviewed/Updated: Yes - Assessment Assessment:: 1. Exploratory Laparotomy with drainage multifocal intra-abdominal abscess, right colectomy, small bowel resection, mobilization omentum into pelvis. Date of surgery 01/02/19. Surgeon, Renny Dickens MD a. Repair multifocal intra abdominal abscess with focal deserosalization b. Repair necrosis cecum distal small bowel 2. Delayed primary wound closure 01/04/19. Surgeon, Renny Dickens MD 3. Pain, left first metatarsophalangeal joint (See consult note) - Plan Plan:: 1. Switch from ice chips to a full liquid diet 2. Will check in the AM or PRN as needed
[2019-01-05] MEDS: Dextrose 5%-Lactated Ringers 1,000 ML IV SCH ×2 (09:53→21:21)
[2019-01-05] MEDS: Ondansetron 4 MG/2 ML SDV IVPUSH PRN (12:56)
[2019-01-05] MEDS: Allopurinol 300 MG Tab PO SCH (15:39)
[2019-01-05] MEDS: Pantoprazole 40 MG Vial IV SCH (17:22)
[2019-01-05] MEDS: Acetaminophen/oxyCODONE 325-10 MG Tab PO PRN ×2 (17:33→21:17)
[2019-01-05] MEDS: Colchicine 0.6 MG Tab PO SCH (21:17)
[2019-01-06] MEDS: Acetaminophen/oxyCODONE 325-10 MG Tab PO PRN ×3 (01:12→09:17)
[2019-01-06] MEDS: Aztreonam/Dextrose-Water 1 GM in Premix Bag 1 BAG IV SCH (01:13)
[2019-01-06] MEDS: Ampicillin/Sulbactam Na 3 GM in Sodium Chloride 0.9% 100 ML IV SCH (03:27)
[2019-01-06] MEDS ORDERED: Sodium Chloride 0.9% 10 ML Syringe FLUSH PRN (07:43)
[2019-01-06] MEDS: Colchicine 0.6 MG Tab PO SCH (09:16)
[2019-01-06] MEDS: Allopurinol 300 MG Tab PO SCH (09:16)
--- NOTE | 2019-01-07 17:32 | OR ---
DATE OF PROCEDURE: 01/04/2019 PREOPERATIVE DIAGNOSIS: Open abdominal incision. POSTOPERATIVE DIAGNOSIS: Open abdominal incision. OPERATIVE PROCEDURE: Delayed primary closure of open abdominal incision. ANESTHESIA: IV sedation plus local. INDICATION FOR PROCEDURE: The patient is status post an open laparotomy with drainage of multifocal intraabdominal abscess along with bowel resection. At that time, he was felt to be a high risk for wound infection if a primary closure was undertaken. Given this, the incision was left open for a planned delayed primary closure at this time. Potential risks including bleeding and infection were reviewed, and the patient wishes to proceed. DETAILS OF PROCEDURE: The patient was taken to the operating room and placed in a supine position. After IV sedation was administered, the abdominal dressings were taken down. The wound was inspected and found to be clean. The incision was then prepped and draped, anesthetized with 1% lidocaine mixed with Marcaine, and irrigated with an antibiotic- containing saline solution. The incision was then closed with a layer of 3-0 Vicryl stitch deep, then a 4-0 Vicryl subdermal stitch, and then jyoti for the skin. Dressing was applied. There were no evident complications. The patient was taken to the recovery room in satisfactory condition. Renny Dickens MD /[id number]
--- NOTE | 2019-01-09 08:17 | DISCH ---
FINAL DIAGNOSIS: Multifocal intraabdominal abscess with focal deserosalization and necrosis of cecum and distal small bowel. SECONDARY DIAGNOSES: 1. Probable gout involving the right great toe. 2. Recent acute appendicitis. OPERATIVE PROCEDURE: Exploratory laparotomy with: 1. Drainage of multifocal intraabdominal abscess. 2. Right colectomy. 3. Small bowel resection. 4. Mobilization of omentum into pelvis to reduce the postoperative adhesion formation and then on 01/04/19 delayed primary closure of abdominal incision. SUMMARY: This is a 33-year-old status post open appendectomy for a perforated retrocecal appendicitis per Dr. Bardales. He presented earlier this weekend with fever and chills, and a CT scan showed multifocal intraabdominal abscess around and posterior to the cecum. He was admitted with IV antibiotics and underwent exploratory laparotomy. He had a dense multifocal abscess with very firm inflammatory response. After the abscess was eventually drained, it became evident that the patient needed right colectomy, as well as a distal small bowel resection due to those areas being quite deserosalized and somewhat necrotic in locations. The patient had a quite densely adherent small bowel to the pelvis, so the omentum was mobilized downward as well to displace the small bowel out of the pelvis and try to limit adhesions from that area, as well as the pelvic and abdominal wall anteriorly and laterally. Postoperatively, the patient had a fairly sudden onset of quite severe pain in his right toe. Initial uric acid was normal, but the uric acid in 24-hour urine collection was somewhat elevated, and Dr. Valladares, the production broacher, felt we were probably dealing with gout, and the patient had been started on colchicine and allopurinol. He has just been on the colchicine now for the last 24 hours and has seen some improvement in the toe symptoms presently. At this point, the patient is eating satisfactorily, moving his bowels. The incision is clean. He will be discharged home. We were planning to get an MRI of his toe early this week, but he has stainless steel skin jyoti and which will need to stay in until around , so the MRI will be held. We will have him see Dr. Valladares on Tuesday this coming week, and at that time, they can determine whether or not to still pursue the MRI, depending on the clinical course at that point. Otherwise, we will see the patient back on , 01/11/2019, at 2:30 p.m. and will be scheduled to see Dr. Valladares at [facility] on 01/09/2019, at 10:00 a.m. MEDICATIONS: The patient's medications will include continuation of probiotics and ibuprofen. Medications will additionally include Percocet 5/325, 1 to 2 tabs q.4 hours p.r.n. pain, #50; Augmentin 875 mg p.o. b.i.d. x5 days; colchicine 0.6 mg p.o. b.i.d. x5 days; and allopurinol 300 mg p.o. daily, #30, refill x5.
--- NOTE | 2019-01-09 11:48 | OR ---
DATE OF PROCEDURE: 01/02/2019 SURGEON: Renny Dickens MD PREOPERATIVE DIAGNOSIS: Multifocal intraabdominal abscess, status post recent appendectomy. POSTOPERATIVE DIAGNOSES: 1. Multifocal intraabdominal abscess, status post recent appendectomy with focal deserosalization and necrosis of distal small bowel and cecum. 2. Separate areas of small bowel deserosalization x2. PROCEDURE PERFORMED: Exploratory laparotomy with: 1. Drainage of multifocal intraabdominal abscesses (48926). 2. Right hemicolectomy (75961). 3. Small bowel resection (00428). 4. Repair of areas of small bowel deserosalization x2 (10945). 5. Mobilization of omentum into pelvis to limit recurrent adhesion formation between viscera and pelvic sidewalls and anterior abdominal hooper (26097). ANESTHESIA: General. ASSISTANTS: Chloe Bragg PA-C and RADHA Recinos. INDICATION FOR PROCEDURE: This is a 33-year-old male, 19 days status post an open appendectomy for perforated retrocecal appendicitis. The patient presented yesterday with a picture of abdominal infection, and a CT scan showed multifocal intraabdominal abscess posterior and around the cecum. The plan is to proceed with an open laparotomy with drainage of the abscess and bowel resection as indicated. Potential risks including bleeding, infection, leaks from various GI tract closures, as well as possibility of cardiopulmonary, septic, or hemorrhagic complications leading to were discussed, and the patient wishes to proceed. DESCRIPTION OF PROCEDURE: The patient was taken to the operating room and placed in a supine position. After general endotracheal anesthesia was induced, a Brennan catheter was inserted, and the abdomen prepped and draped. A midline incision, which eventually extended from the pubis to roughly a handsbreadth below the xiphoid, was made and carried down through the skin and subcutaneous tissue and through the full thickness of the abdominal wall. Some minor adhesions between the omentum and the anterior abdominal wall were taken down. As expected, at this point 19 days status post previous surgery, the area around the cecum was extremely densely inflamed and quite hard in terms of texture. As one dissected the cecum, three focal abscesses were identified. Two of these areas were cultured. As one divided the lateral peritoneal reflection of the cecum and mobilized that upward, was noted to have some areas of necrosis in the posterior aspect of the cecum. There was also a significant area of small bowel which was deserosalized during the course of that takedown of the abscess cavity, this accounting for roughly 2 feet of the distalmost small bowel leading up to the ileocecal valve. Once these abscesses were drained, the cecum and ascending colon were mobilized upward. It was clear that this entire complex needed to be resected, as it would be at quite high risk for fistula formation or leakage. Given this, the small bowel roughly 2 feet proximal to the ileocecal valve and the mid transverse colon were both divided with KAROLINA staplers and the mesentery between the 2 points divided with mesenteric and cruz loads. Care was then taken to avoid injury to the right ureter and duodenum during the course of the dissection. This specimen was then delivered from the field. Inspection revealed 2 areas of focal deserosalization of small bowel. These were small enough that these were able to be closed with transversely oriented application of KAROLINA cruz load staplers at the 2 sites of deserosalization, and upon closure of both of these sites, the lumen was noted to be satisfactorily intact at each site. At this point, GI tract continuity was accomplished with ileal to transverse colon anastomosis. This was done in a standard [id number] manner with 2 internal firings of the KAROLINA 60 mm load staplers. The common opening was then closed with KAROLINA purple loads and the angles were anastomosed. The mesenteric defect was approximated with some 0 Ethibond stitch, along with 4 mL of fibrin sealant. The abdomen was then irrigated with meropenem-containing saline solution. A single Otoniel- Perez drain was taken out through the right mid abdomen, taken along the right paracolic gutter, and from there down into the pelvis. The patient was felt to be at quite high risk for adhesion formation between the remaining small bowel and depths of the pelvis, as well as the pelvic and abdominal hooper. Given this, the omentum was freed up somewhat further from the remaining transverse colon and then mobilized down into the pelvis to displace the bowel from the pelvic surfaces. This was sutured in place using 3-0 Vicryl stitch. Following this, the midline fascia was approximated with #2 Vicryl stitch. Skin and subcutaneous tissue were felt to be at high risk for wound infection if primary closure was undertaken. Given this, skin and subcutaneous tissue were packed open for a planned delayed primary closure in 48 hours. The patient was taken to the recovery room in satisfactory condition. Physician medical assistant instructor, Chloe Bragg, played an essential role in assisting in this case, helping to position the patient, retract structures as needed, as well as suturing and cutting sutures when indicated. Her presence improved the patient's safety and decreased operative time. Renny Dickens MD /[id number]
== END 2019-01-06 12:40 | disposition home or self-care (01) | DRG 856 ==
LOC: JP.MS 15:55
PROVIDERS: ADMIT Surgery; ATTEND Surgery
PROC: 0DTF0ZZ Resection of Right Large Intestine, Open Approach (ICD-10-PCS; principal; 2019-01-02)
PROC: 0DB80ZZ Excision of Small Intestine, Open Approach (ICD-10-PCS; 2019-01-02)
PROC: 0DNU0ZZ Release Omentum, Open Approach (ICD-10-PCS; 2019-01-02)
PROC: 0W9G0ZZ Drainage of Peritoneal Cavity, Open Approach (ICD-10-PCS; 2019-01-02)
PROC: 0WQF0ZZ Repair Abdominal Wall, Open Approach (ICD-10-PCS; 2019-01-04)
DX: K68.11 Postprocedural retroperitoneal abscess (principal); K55.049 Acute infarction of large intestine, extent unspecified; K55.029 Acute infarction of small intestine, extent unspecified; T81.43XA Infection following a procedure, organ and space surgical site, initial encounter; M79.675 Pain in left toe(s); M10.9 Gout, unspecified; Z90.49 Acquired absence of other specified parts of digestive tract; D72.829 Elevated white blood cell count, unspecified; R16.2 Hepatomegaly with splenomegaly, not elsewhere classified; Z48.1 Encounter for planned postprocedural wound closure; B96.20 Unspecified Escherichia coli [E. coli] as the cause of diseases classified elsewhere
CPT/HCPCS: 36415; 73630-LT; 74177; 74177-26; 80053; 83735; 84100; 84550; 84560; 85025; 85027; 87070; 87075; 87186; 87205; 88307; 94762; 97140-GP; 97162-GP; 97530-GP; 97535-GP; A9270-GY; C9113; J0131; J0171; J0287; J0330; J1100; J1170; J1200; J2020; J2175; J2185; J2250; J2405; J2704; J2710; J2795; J3010; J3410; J3490; J7030; J7042; J7050; J7120; Q9965